=== PATIENT | male | born 1975 | race Caucasian/White ===

== ENCOUNTER 2018-06-19 13:45 | Emergency (ER) | payer MEDICAID ==
--- NOTE | 2018-06-19 14:01 | ERPHSYRPT ---
- History of Present Illness Time Seen by Provider: 06/19/18 13:55 Source: patient Exam Limitations: no limitations Physician History: 42 y/o white male presents with headache and dizziness for several days. pt is under a lot of stress. pt has sig cardiac hx including cardiac stents placed X2. [facility]x a [facility]. [facility] months. pt has a new job and a new place to live with his son and he is out of all his cardiac meds. 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 Timing/Duration: day(s) (several days) Severity: mild Character of Deficits: other (headache and dizziness) Deficits: no difficulties Baseline/Normal Cognition: alert oriented x 3 Current Cognition: alert oriented x 3 Baseline Gait: walks w/o assistance Associated Symptoms: headache, other (dizziness) Allergies/Adverse Reactions: No Known Drug Allergies Allergy (Verified 06/19/18 14:09) Home Medications: No Reportable Medications [No Reported Medications] 06/19/18 [History] - Review of Systems Constitutional: No Symptoms Eyes: No Symptoms Ears, Nose, & Throat: No Symptoms Respiratory: No Symptoms Cardiac: No Symptoms Abdominal/Gastrointestinal: No Symptoms Genitourinary Symptoms: No Symptoms Musculoskeletal: No Symptoms Skin: No Symptoms Neurological: Dizziness, Headache Psychological: Anxiety, Other (stressed) Endocrine: No Symptoms Hematologic/Lymphatic: No Symptoms Immunological/Allergic: No Symptoms All Other Systems: Reviewed and Negative - Past Medical History Neurological History: No Pertinent History ENT History: No Pertinent History Cardiac History: No Pertinent History Respiratory History: No Pertinent History Endocrine Medical History: No Pertinent History Musculoskeletal History: No Pertinent History GI Medical History: No Pertinent History History: No Pertinent History Psycho-Social History: No Pertinent History Male Reproductive Disorders: No Pertinent History - Past Surgical History Neuro Surgical History: No Pertinent History Cardiac: No Pertinent History Respiratory: No Pertinent History Gastrointestinal: No Pertinent History Genitourinary: No Pertinent History Musculoskeletal: No Pertinent History Male Surgical History: No Pertinent History - Nursing Vital Signs Nursing Vital Signs: Initial Vital Signs Temperature 97.8 F 06/19/18 13:50 Pulse Rate 100 H 06/19/18 13:50 Blood Pressure 111/88 06/19/18 13:50 O2 Sat by Pulse Oximetry 94 L 06/19/18 13:50 Pain Scale Pain Intensity 10 - [place] Coma Scale Best Eye Response ([place]): (4) open spontaneously Best Verbal Response ([place]): (5) oriented Best Motor Response ([place]): (6) obeys commands Unique Total: 15 - Physical Exam General Appearance: mild distress, alert, anxiety Eye Exam: bilateral eye: normal inspection, PERRL, EOMI Ears, Nose, Throat Exam: normal ENT inspection, moist mucous membranes Neck Exam: normal inspection, non-tender, supple, full range of motion Respiratory: normal breath sounds, lungs clear, airway intact, No chest tenderness, No respiratory distress, No accessory muscle use, No rhonchi, No wheezing, No stridor Cardiovascular: regular rate/rhythm, normal heart sounds, normal peripheral pulses Gastrointestinal: soft, normal bowel sounds, No tenderness, No guarding, No rebound Rectal Exam: not done Back Exam: normal inspection, normal range of motion, No CVA tenderness, No vertebral tenderness Extremity Exam: normal inspection, normal range of motion, pelvis stable Mental Status: alert, oriented x 3, cooperative quality assurance monitor final Exam: normal hearing, normal speech, PERRL, tongue midline Coordination/Gait: normal finger to nose, normal gait Motor/Sensory: no motor deficit, no sensory deficit Skin Exam: normal color, warm, dry SpO2 Interpretation: normal O2 Delivery: Room Air - Course Nursing assessment & vital signs reviewed: Yes EKG Interpreted by Me: RATE (81), Sinus Rhythm, NORMAL AXIS, Other (no acute ischemia. no comparison ekg) Ordered Tests: Active Orders 24 hr Category Date Time Status Clean Catch Urine Specimen STAT Care 06/19/18 14:08 Active EKG-ER Only STAT Care 06/19/18 14:08 Active IV Insertion STAT Care 06/19/18 14:08 Active HEAD WITHOUT CONTRAST [CT] Stat Exams 06/19/18 14:08 Completed CBC W DIFF Stat Lab 06/19/18 14:20 Completed CMP Stat Lab 06/19/18 14:20 Completed ETHYL ALCOHOL Stat Lab 06/19/18 14:20 Completed MAGNESIUM Stat Lab 06/19/18 14:20 Completed TROPONIN Q3H Lab 06/19/18 14:20 Completed TROPONIN Q3H Lab 06/19/18 20:15 Ordered TROPONIN Q3H Lab 06/19/18 23:15 Ordered TROPONIN Q3H Lab 06/20/18 02:15 Ordered UA W/RFX UR CULTURE Stat Lab 06/19/18 Completed Urine Triage Profile Stat Lab 06/19/18 Completed Medication Summary Discontinued Medications Generic Name Dose Route Start Last Admin Trade Name Jesus PRN Reason Stop Dose Admin Morphine Sulfate 4 mg 06/19/18 16:07 06/19/18 16:25 Morphine Sulfate 4 Mg Inj IV 06/19/18 16:08 4 mg STAT ONE Administration Morphine Sulfate Confirm 06/19/18 16:18 Morphine Sulfate 4 Mg Inj Administered 06/19/18 16:19 Dose 4 mg .ROUTE .STK-MED ONE Ondansetron HCl 4 mg 06/19/18 16:08 06/19/18 16:25 Zofran 4 Mg/2 Ml Vial IV 06/19/18 16:09 4 mg STAT ONE Administration Ondansetron HCl Confirm 06/19/18 16:18 Zofran 4 Mg/2 Ml Vial Administered 06/19/18 16:19 Dose 4 mg .ROUTE .STK-MED ONE Lab/Rad Data: Laboratory Result Diagrams 06/19/18 14:20 06/19/18 14:20 Laboratory Results 06/19/18 06/19/18 06/19/18 Range/Units Unknown Unknown 14:20 WBC (4.0-10.5) K/mm3 RBC (4.1-5.6) M/mm3 Hgb (12.5-18.0) gm/dl Hct (42-50) % MCV (78-100) fl MCH (26-32) pg MCHC (32-36) g/dl RDW (11.5-14.0) % Plt Count (150-450) K/mm3 MPV (6-9.5) fl Gran % (36.0-66.0) % Eos # (Auto) (0-0.5) Absolute Lymphs (auto) (1.0-4.6) Absolute Monos (auto) (0.0-1.3) Lymphocytes % (24.0-44.0) % Monocytes % (0.0-12.0) % Eosinophils % (0.00-5.0) % Basophils % (0.0-0.4) % Absolute Granulocytes (1.4-6.9) Basophils # (0-0.4) Sodium (137-145) mmol/L Potassium (3.5-5.1) mmol/L Chloride (98-107) mmol/L Carbon Dioxide (22-30) mmol/L Anion Gap (5-15) MEQ/L BUN (9-20) mg/dL Creatinine (0.66-1.25) mg/dL Estimated GFR ML/MIN Glucose (74-106) mg/dL Calcium (8.4-10.2) mg/dL Magnesium (1.6-2.3) mg/dL Total Bilirubin (0.2-1.3) mg/dL AST (17-59) U/L ALT (0-50) U/L Alkaline Phosphatase (38-126) U/L Troponin I < 0.012 (0.000-0.034) ng/mL Serum Total Protein (6.3-8.2) g/dL Albumin (3.5-5.0) g/dL Urine Color YELLOW (YELLOW) Urine Appearance CLEAR (CLEAR) Urine pH 7.0 (5-6) Ur Specific [place] 1.013 (1.005-1.025) Urine Protein NEGATIVE (Negative) Urine Ketones NEGATIVE (NEGATIVE) Urine Blood NEGATIVE (0-5) Elliot/ul Urine Nitrite NEGATIVE (NEGATIVE) Urine Bilirubin NEGATIVE (NEGATIVE) Urine Urobilinogen NEGATIVE (0-1) mg/dL Ur Leukocyte Esterase NEGATIVE (NEGATIVE) Urine WBC (Auto) NONE (0-5) /HPF Urine RBC (Auto) NONE (0-2) /HPF U Epithel Cells (Auto) NONE (FEW) /HPF Urine Bacteria (Auto) NONE (NEGATIVE) /HPF Urine Mucus (Auto) SLIGHT (NEGATIVE) /HPF Urine Culture Reflexed NO (NO) Urine Glucose NEGATIVE (NEGATIVE) mg/dL Urine Opiates Level NEGATIVE (NEGATIVE) Ur Methadone NEGATIVE (NEGATIVE) Urine Barbiturates NEGATIVE (NEGATIVE) Ur Phencyclidine (PCP) NEGATIVE (NEGATIVE) Urine Amphetamine NEGATIVE (NEGATIVE) U Benzodiazepine Level NEGATIVE (NEGATIVE) Urine Cocaine NEGATIVE (NEGATIVE) Urine Marijuana (THC) NEGATIVE (NEGATIVE) Ethyl Alcohol (0-10) mg/dL 06/19/18 06/19/18 Range/Units 14:20 14:20 WBC 7.0 (4.0-10.5) K/mm3 RBC 4.99 (4.1-5.6) M/mm3 Hgb 14.8 (12.5-18.0) gm/dl Hct 46.9 (42-50) % MCV 94.0 (78-100) fl MCH 29.7 (26-32) pg MCHC 31.6 L (32-36) g/dl RDW 14.1 H (11.5-14.0) % Plt Count 145 L (150-450) K/mm3 MPV 13.0 H (6-9.5) fl Gran % 52.7 (36.0-66.0) % Eos # (Auto) 0.36 (0-0.5) Absolute Lymphs (auto) 2.51 (1.0-4.6) Absolute Monos (auto) 0.41 (0.0-1.3) Lymphocytes % 35.9 (24.0-44.0) % Monocytes % 5.9 (0.0-12.0) % Eosinophils % 5.1 H (0.00-5.0) % Basophils % 0.4 (0.0-0.4) % Absolute Granulocytes 3.69 (1.4-6.9) Basophils # 0.03 (0-0.4) Sodium 141 (137-145) mmol/L Potassium 3.6 (3.5-5.1) mmol/L Chloride 107 (98-107) mmol/L Carbon Dioxide 27 (22-30) mmol/L Anion Gap 10.4 (5-15) MEQ/L BUN 15 (9-20) mg/dL Creatinine 0.75 (0.66-1.25) mg/dL Estimated GFR > 60.0 ML/MIN Glucose 150 H (74-106) mg/dL Calcium 9.1 (8.4-10.2) mg/dL Magnesium 2.1 (1.6-2.3) mg/dL Total Bilirubin 0.30 (0.2-1.3) mg/dL AST 19 (17-59) U/L ALT 25 (0-50) U/L Alkaline Phosphatase 51 (38-126) U/L Troponin I (0.000-0.034) ng/mL Serum Total Protein 7.0 (6.3-8.2) g/dL Albumin 3.9 (3.5-5.0) g/dL Urine Color (YELLOW) Urine Appearance (CLEAR) Urine pH (5-6) Ur Specific [place] (1.005-1.025) Urine Protein (Negative) Urine Ketones (NEGATIVE) Urine Blood (0-5) Elliot/ul Urine Nitrite (NEGATIVE) Urine Bilirubin (NEGATIVE) Urine Urobilinogen (0-1) mg/dL Ur Leukocyte Esterase (NEGATIVE) Urine WBC (Auto) (0-5) /HPF Urine RBC (Auto) (0-2) /HPF U Epithel Cells (Auto) (FEW) /HPF Urine Bacteria (Auto) (NEGATIVE) /HPF Urine Mucus (Auto) (NEGATIVE) /HPF Urine Culture Reflexed (NO) Urine Glucose (NEGATIVE) mg/dL Urine Opiates Level (NEGATIVE) Ur Methadone (NEGATIVE) Urine Barbiturates (NEGATIVE) Ur Phencyclidine (PCP) (NEGATIVE) Urine Amphetamine (NEGATIVE) U Benzodiazepine Level (NEGATIVE) Urine Cocaine (NEGATIVE) Urine Marijuana (THC) (NEGATIVE) Ethyl Alcohol < 10 (0-10) mg/dL - Progress Progress: improved, pain not gone completely, re-examined Counseled pt/family regarding: lab results, diagnosis, need for follow-up, rad results - Departure Departure Disposition: Home Clinical Impression: Headache, Dizziness Condition: Stable Critical Care Time: No Referrals: HERMES STRANGE MD [Primary Care Provider] - Additional Instructions: drink plenty of fluids. call your gristmill operator tomorrow for further management. use tylenol and ibuprofen for your pain.
[2018-06-19 14:38] LABS: BASOPHIL % 0.4 % (0.0-0.4); Basophil (Absolute #) 0.03 (0-0.4); Eosinophil % 5.1 % (0.00-5.0); Eosinophil (Absolute #) 0.36 (0-0.5); Granulocyte Absolute (ANC) 3.69 (1.4-6.9); Granulocytes % 52.7 % (36.0-66.0); Hematocrit 46.9 % (42-50); Hemoglobin 14.8 gm/dl (12.5-18.0); Lymphocyte (Absolute #) 2.51 (1.0-4.6); Lymphocytes % 35.9 % (24.0-44.0); Mean Corpuscular Hemoglobin 29.7 pg (26-32); Mean Corpuscular Hgb Concent. 31.6 g/dl (32-36); Monocyte (Absolute #) 0.41 (0.0-1.3); Monocytes % 5.9 % (0.0-12.0); Platelet Count 145 K/mm3 (150-450); Red Blood Count 4.99 M/mm3 (4.1-5.6); Red Cell Distribution Width 14.1 % (11.5-14.0)
--- NOTE | 2018-06-19 14:44 | XRAY ---
Indication: Headache and dizziness. Multiple contiguous axial images obtained through the head without contrast. Comparison: None Normal appearing brain parenchyma, ventricles, and bony calvarium. Visualized paranasal sinuses and mastoid air cells are clear. Impression: Normal CT head without contrast exam. CT DI 68.98
[2018-06-19 14:50] LABS: ALBUMIN 3.9 g/dL (3.5-5.0); ALKALINE PHOSPHATASE 51 U/L (38-126); ANION GAP 10.4 MEQ/L (5-15); BLOOD UREA NITROGEN 15 mg/dL (9-20); CHLORIDE 107 mmol/L (98-107); Calcium 9.1 mg/dL (8.4-10.2); Carbon Dioxide 27 mmol/L (22-30); Creatinine 1 0.75 mg/dL (0.66-1.25); ETHYL ALCOHOL < 10 mg/dL (0-10); Glucose 150 mg/dL (74-106); MAGNESIUM 2.1 mg/dL (1.6-2.3); Potassium 3.6 mmol/L (3.5-5.1); SGOT/AST 19 U/L (17-59); SGPT/ALT 25 U/L (0-50); SODIUM 141 mmol/L (137-145)
[2018-06-19] MEDS ORDERED: MORPHINE SULFATE 4 MG INJ IV ONE (16:07)
[2018-06-19] MEDS ORDERED: Zofran 4 MG/2 ML VIAL IV ONE (16:08)
[2018-06-19] MEDS ORDERED: MORPHINE SULFATE 4 MG INJ ONE (16:18)
[2018-06-19] MEDS ORDERED: Zofran 4 MG/2 ML VIAL ONE (16:18)
[2018-06-19 16:58] VITALS: BP 107/74; O2SAT 97
[2018-06-19 17:15] LABS: Appearance CLEAR (CLEAR); Bilirubin NEGATIVE (NEGATIVE); Blood NEGATIVE Ery/ul (0-5); Glucose NEGATIVE (NEGATIVE); Ketones NEGATIVE (NEGATIVE); Leukocyte Esterase NEGATIVE (NEGATIVE); Mucus SLIGHT /HPF (NEGATIVE); Nitrite NEGATIVE (NEGATIVE); Protein,Urine Dip NEGATIVE (Negative); Specific Gravity 1.013 (1.005-1.025); Urobilinogen NEGATIVE mg/dL (0-1)
[2018-06-19 17:33] LABS: Amphetamine,Urine NEGATIVE (NEGATIVE); Barbiturate,Urine NEGATIVE (NEGATIVE); Benzodiazepine,Urine NEGATIVE (NEGATIVE); Cocaine,Urine NEGATIVE (NEGATIVE); Methadone,Urine NEGATIVE (NEGATIVE); Opiate,Urine NEGATIVE (NEGATIVE); PCP,Urine NEGATIVE (NEGATIVE); THC,Urine NEGATIVE (NEGATIVE)
[2018-06-19 18:41] VITALS: PULSE 70
== END 2018-06-19 18:41 | disposition home or self-care (01) ==
LOC: ED 13:45
DX: R51 Headache (principal); R42 Dizziness and giddiness
CPT/HCPCS: 36000; 36415; 70450; 80053; 80307; 81001; 83735; 84484; 85025; 93005; 96374; 96375; 99284; J2270; J2405; G0480

== ENCOUNTER 2018-06-22 19:22 | Emergency (ER) | payer MEDICAID ==
[2018-06-22] MEDS ORDERED: BABY ASPIRIN 81 MG CHEW PO ONE (19:34)
[2018-06-22 19:36] VITALS: O2SAT 96
[2018-06-22 19:49] LABS: BASOPHIL % 0.5 % (0.0-0.4); Basophil (Absolute #) 0.04 (0-0.4); Eosinophil % 2.9 % (0.00-5.0); Eosinophil (Absolute #) 0.24 (0-0.5); Granulocyte Absolute (ANC) 4.59 (1.4-6.9); Granulocytes % 56.4 % (36.0-66.0); Hematocrit 46.6 % (42-50); Lymphocyte (Absolute #) 2.91 (1.0-4.6); Lymphocytes % 35.7 % (24.0-44.0); Mean Corpuscular Hemoglobin 30.2 pg (26-32); Mean Corpuscular Hgb Concent. 32.2 g/dl (32-36); Mean Platelet Volume 13.1 fl (6-9.5); Monocyte (Absolute #) 0.37 (0.0-1.3); Monocytes % 4.5 % (0.0-12.0); Platelet Count 148 K/mm3 (150-450); Red Blood Count 4.96 M/mm3 (4.1-5.6); Red Cell Distribution Width 14.1 % (11.5-14.0); White Blood Count 8.2 K/mm3 (4.0-10.5)
[2018-06-22] MEDS ORDERED: Ativan 2 MG/1 ML VIAL IV ONE (20:02)
[2018-06-22 20:11] LABS: ALKALINE PHOSPHATASE 58 U/L (38-126); ANION GAP 10.7 MEQ/L (5-15); BLOOD UREA NITROGEN 20 mg/dL (9-20); CHLORIDE 107 mmol/L (98-107); Carbon Dioxide 26 mmol/L (22-30); Glucose 150 mg/dL (74-106); NT PRO BNP 60.4 pg/mL (0-450); Potassium 3.8 mmol/L (3.5-5.1); SGOT/AST 24 U/L (17-59); SGPT/ALT 27 U/L (0-50); SODIUM 141 mmol/L (137-145)
[2018-06-22] MEDS ORDERED: Ativan 2 MG/1 ML VIAL ONE (20:12)
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
[2018-06-22 21:03] VITALS: BP 128/84; PULSE 92
== END 2018-06-22 21:14 | disposition home or self-care (01) ==
LOC: ED 19:22
DX: R07.9 Chest pain, unspecified (principal); Z63.8 Other specified problems related to primary support group
CPT/HCPCS: 36000; 36415; 80053; 83880; 84484; 85025; 85379; 93005; 93041; 96374; 99284; J2060; A9270-GY

== ENCOUNTER 2018-08-19 16:40 | Emergency (ER) | payer MEDICAID ==
[2018-08-19 17:09] VITALS: BP 112/74; PULSE 86; O2SAT 98
[2018-08-19] MEDS ORDERED: NORCO 5/325 MG PO ONE (17:21)
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
[2018-08-19] MEDS ORDERED: NORCO 5/325 MG ONE (17:25)
== END 2018-08-19 18:11 | disposition home or self-care (01) ==
LOC: ED 16:40
DX: M54.5 Low back pain (principal); M79.604 Pain in right leg; V89.2XXS Person injured in unspecified motor-vehicle accident, traffic, sequela; I25.10 Atherosclerotic heart disease of native coronary artery without angina pectoris; I25.2 Old myocardial infarction; G47.30 Sleep apnea, unspecified; Z79.899 Other long term (current) drug therapy; F32.9 Major depressive disorder, single episode, unspecified
CPT/HCPCS: 99283; A9270-GY

== ENCOUNTER 2018-12-28 11:44 | Emergency (ER) | payer OTHER ==
[2018-12-28 12:00] VITALS: O2SAT 93
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
[2018-12-28 12:51] VITALS: BP 117/81; PULSE 87
== END 2018-12-28 13:30 | disposition home or self-care (01) ==
LOC: ED 11:44
DX: H60.92 Unspecified otitis externa, left ear (principal); H66.92 Otitis media, unspecified, left ear; J02.9 Acute pharyngitis, unspecified; Z72.0 Tobacco use
CPT/HCPCS: 99283

== ENCOUNTER 2021-07-29 11:56 | Day surgery (SDC) | payer OTHER ==
[2021-07-29] MEDS ORDERED: Marcaine Mpf 0.5% Vial 30 Ml IJ ONE (11:57)
[2021-07-29] MEDS ORDERED: Xylocaine 1% Vial 30 ML PF IJ ONE (11:57)
[2021-07-29] MEDS ORDERED: Depo-Medrol 40 MG/ML IM ONE (11:57)
[2021-07-29] MEDS ORDERED: Lactated Ringers 1,000 ML IV ONE (15:00)
--- NOTE | 2021-07-29 16:32 | XRAY ---
Indication: Cervical CLEMENTINA. Intraoperative fluoroscopy provided for 29 seconds. 2 digital spot image submitted for interpretation demonstrates midline posterior needle tip projecting just posterior to cervical thoracic. Small amount of contrast injected for needle tip placement. Correlate with intraoperative findings/report.
--- NOTE | 2021-07-29 16:35 | XRAY ---
Indication: Right hip injection. Intraoperative fluoroscopy provided for 11 seconds. Single digital spot image obtained prone submitted for interpretation demonstrates needle tip projecting lateral to the right greater trochanter. Small amount of contrast injected for needle tip placement. Correlate with intraoperative findings/report.
--- NOTE | 2021-07-29 16:45 | XRAY ---
29 seconds of fluoroscopy was used in surgery for a cervical CLEMENTINA.
--- NOTE | 2021-07-29 16:45 | XRAY ---
11 seconds of fluoroscopy was used in surgery for a right hip greater trochanteric bursa injection.
== END 2021-07-29 14:40 | disposition home or self-care (01) ==
LOC: SDC-PAIN 11:56
PROVIDERS: ATTEND Psychiatry & Neurology Pain Medicine
DX: M54.12 Radiculopathy, cervical region (principal); M70.61 Trochanteric bursitis, right hip; Z79.899 Other long term (current) drug therapy
CPT/HCPCS: 62323; 72040; 73501; 77002; 77003; J1030; J2001; Q9966

== ENCOUNTER 2022-11-10 12:10 | Day surgery (SDC) | payer OTHER ==
[2022-11-10] MEDS ORDERED: BUPIVACAINE 0.5% VIAL IJ ONE (12:11)
[2022-11-10] MEDS ORDERED: Depo-Medrol 40 MG/ML IM ONE (12:11)
[2022-11-10] MEDS ORDERED: LIDOCAINE HCL 1% 50 MG/5 ML VL PF IJ ONE (12:11)
--- NOTE | 2022-11-10 14:44 | XRAY ---
Indication: Bilateral SI joint injection. Intraoperative fluoroscopy provided for 30 seconds. 7 digital spot image submitted for interpretation demonstrates posterior needle tip projecting over the expected left and right SI joint. Correlate with intraoperative findings
--- NOTE | 2022-11-10 16:46 | XRAY ---
30 seconds of fluoroscopy was used in surgery for a bilateral sacroiliac joint injection.
== END 2022-11-10 14:20 | disposition home or self-care (01) ==
LOC: SDC-PAIN 12:10
PROVIDERS: ATTEND Psychiatry & Neurology Pain Medicine
DX: M46.1 Sacroiliitis, not elsewhere classified (principal); Z79.899 Other long term (current) drug therapy
CPT/HCPCS: 27096; 72202; 77002; J1030; J2001; G0260

== ENCOUNTER 2023-02-02 13:03 | Day surgery (SDC) | payer OTHER ==
[2023-02-02] MEDS ORDERED: Depo-Medrol 40 MG/ML IM ONE (13:04)
[2023-02-02] MEDS ORDERED: Decadron 4 MG INJ IV ONE (13:04)
[2023-02-02] MEDS ORDERED: XYLOCAINE-MPF 1% 5ML SDV IJ ONE (13:04)
[2023-02-02] MEDS ORDERED: BUPIVACAINE 0.5% VIAL IJ ONE (13:04)
[2023-02-02] MEDS ORDERED: DIPRIVAN 200 MG/20 ML IV ONE (15:21)
[2023-02-02] MEDS ORDERED: Versed 2 MG/2 ML Injection ONE (15:21)
[2023-02-02] MEDS ORDERED: Lactated Ringers 1,000 ML IV ONE (16:27)
--- NOTE | 2023-02-02 21:07 | XRAY ---
Indication: Right piriformis and right greater trochanter bursa injection. Intraoperative fluoroscopy provided for 35 seconds. 2 digital spot image obtained prone submitted for interpretation demonstrates posterior needle tip projecting over the right piriformis. Second needle tip lateral to the right greater trochanter. Small amount of contrast injected for both needle tip placement. Correlate with intraoperative findings/report.
--- NOTE | 2023-02-02 21:44 | XRAY ---
35 seconds of fluoroscopy was used in surgery for a right greater trochanteric bursa and right piriformis injections.
== END 2023-02-02 15:52 | disposition home or self-care (01) ==
LOC: SDC-PAIN 13:03
PROVIDERS: ATTEND Psychiatry & Neurology Pain Medicine
DX: M70.61 Trochanteric bursitis, right hip (principal); M79.18 Myalgia, other site
CPT/HCPCS: 20552; 20610; 73501; 77002; J1030; J1100; J2250; J2704; Q9966

== ENCOUNTER 2023-09-28 14:15 | Day surgery (SDC) | payer OTHER ==
[2023-09-28] MEDS ORDERED: Sodium Chloride 0.9(Preservative Free) 10 ML IJ ONE (14:16)
[2023-09-28] MEDS ORDERED: Decadron 4 MG INJ IV ONE (14:16)
[2023-09-28] MEDS ORDERED: DIPRIVAN 200 MG/20 ML IV ONE (16:05)
--- NOTE | 2023-09-28 16:50 | XRAY ---
Indication: Right L3-L5 transforaminal CLEMENTINA. Intraoperative fluoroscopy provided for 24 seconds. 6 digital spot image submitted for interpretation demonstrates posterior needle tips projecting over the right L3 and L4 nerve roots. Small amount of contrast injected for needle tip placement. Correlate with intraoperative findings/report. Incidental right iliac stent.
--- NOTE | 2023-09-28 16:52 | XRAY ---
24 seconds of fluoroscopy was used in surgery for a right L3-L5 transforaminal CLEMENTINA.
[2023-09-28] MEDS ORDERED: Lactated Ringers 1,000 ML IV ONE (17:02)
== END 2023-09-28 16:41 | disposition home or self-care (01) ==
LOC: SDC-PAIN 14:15
PROVIDERS: ATTEND Psychiatry & Neurology Pain Medicine
DX: M54.16 Radiculopathy, lumbar region (principal)
CPT/HCPCS: 64483; 64484; 72100; 77003; J1100; J2704; Q9966

== ENCOUNTER 2023-09-29 08:48 | Day surgery (SDC) | payer OTHER ==
[2023-09-29] MEDS ORDERED: Lactated Ringers 1,000 ML IV ONE ×2 (09:10→14:04)
[2023-09-29] MEDS ORDERED: MEFOXIN 2 GM PREMIX** 2 GM/50 ML ML IV ONE (09:10)
[2023-09-29 09:12] VITALS: RESP 18; O2SAT 94
[2023-09-29] MEDS: Lactated Ringers 1,000 ML IV SCH (09:25)
[2023-09-29] MEDS: MEFOXIN 2 GM PREMIX** 2 GM/50 ML ML IV SCH (09:25)
[2023-09-29] MEDS ORDERED: Xylocaine-Mpf 2% 5 Ml Vial ONE (13:12)
[2023-09-29] MEDS ORDERED: DIPRIVAN 200 MG/20 ML IV ONE (13:12)
[2023-09-29] MEDS ORDERED: EXPAREL 133 MG/10 ML VIAL IJ ONE (13:13)
[2023-09-29] MEDS ORDERED: Decadron 4 MG INJ ONE ×2 (13:13→13:14)
[2023-09-29] MEDS ORDERED: Zofran 4 MG/2 ML VIAL ONE (13:14)
[2023-09-29] MEDS ORDERED: Marcaine Mpf 0.5% Vial 30 Ml ONE (13:58)
[2023-09-29] MEDS ORDERED: SUBLIMAZE 100 MCG/2 ML ONE (14:32)
[2023-09-29 15:15] VITALS: TEMP 97.8
[2023-09-29 15:32] VITALS: BP 120/78; PULSE 82
--- NOTE | 2023-09-30 09:06 | OP ---
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 POSTOPERATIVE DIAGNOSES: 1) Colon polyps. 2) [id number]. PROCEDURE: 1) Colonoscopy with endomucosal resection and multiple polypectomies. 2) Rectal examination under anesthesia. 3) Fistulotomy. SURGEON: John Boyce MD ANESTHESIA: LMA anesthesia. PATIENT CONDITION: Stable. COMPLICATIONS: None. SPECIMENS: See below. HISTORY OF PRESENT ILLNESS: Patient is a 48-year-old male, had undergone a colonoscopy although he did not hold his aspirin and Brilinta for that. So, he did have a colonoscopy, but there are multiple unresected polyps, and then also identified on that is probably a fistula. He does complain of persistent intermittent bloody anal drainage, so he does want that dealt with. Discussion was had with the patient of risk of acute pain, infection, recurrence, bleeding. He elected to proceed. FINDINGS: 1) Multiple colon polyps. Endomucosal resection performed of a 1 cm polyp, rectosigmoid. Additional 1 cm polyp and many hyperplastic-appearing polyps, rectosigmoid. 2) Poor preparation of the cecum transverse, but actually good preparation distally. 3) [id number] posteriorly, very superficial. Fistulotomy performed. DESCRIPTION OF PROCEDURE: Patient brought to the operating room. General anesthesia induced. Routinely positioned in lithotomy, appropriately prepped and positioned. A time-out performed. The external exam with that likely posterior fistula. The digital rectal exam otherwise normal. Scope was then inserted and advanced to the cecum, confirmed by the appendiceal orifice and the ileocecal valve. Preparation was actually poor on the cecum and transverse, but the descending, sigmoid, rectum are good preparation. Withdrawal time is greater than 6 minutes, and there are no polyps identified until the rectosigmoid. Like previously described, there are multiple sessile polyps. There is about a 1 cm polyp, sigmoid colon, that is sessile that is everlifted and endomucosal resection performed with the hot snare. That is completely excised satisfactorily. There are additional 4 mm and 2 mm polyps, sessile, next to that taken with a hot snare. There are then just innumerable hyperplastic-appearing rectosigmoid polyps. Initially about 7 of them are taken; patient access representative specimens sent. Then, there is a rectosigmoid pedunculated polyp, 10 mm, that is taken with a hot snare in totality. Retroflexion otherwise just moderate internal hemorrhoids. That is sectioned out. Scope withdrawn. The rectal examination is then performed. Small Hill-Morales inserted. Large Hill-Morales inserted. There are some mild to moderate internal hemorrhoids, but there is the obvious posterior anal fistula that is probed and that clearly communicates. This is very superficial and does not involve any sphincter muscle, so that is incised with cautery. The base is lightly debrided. That is satisfactory, although a 3-0 chromic is placed at the apex kind of where it meets the internal hemorrhoidal tissue, and that is totally hemostatic at that point. The foam plug is then inserted. Anal block performed with Marcaine. Clean dressing applied. All counts were correct. Patient tolerated the procedure well, was extubated in stable condition.
== END 2023-09-29 15:32 | disposition home or self-care (01) ==
LOC: SDC 08:48
PROVIDERS: ATTEND Surgery
DX: D12.7 Benign neoplasm of rectosigmoid junction (principal); D12.5 Benign neoplasm of sigmoid colon; K60.3 Anal fistula; K64.8 Other hemorrhoids
CPT/HCPCS: 93005; J0694; J1100; J2405; J2704; J3010

== ENCOUNTER 2023-10-14 10:22 | Emergency (ER) | payer OTHER ==
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
[2023-10-14] MEDS ORDERED: Sodium Chloride 0.9% 1000 ML 1,000 ML ONE ×2 (11:15→12:31)
[2023-10-14] MEDS ORDERED: Compazine 10 MG/2 ML ONE (11:15)
[2023-10-14] MEDS ORDERED: MORPHINE SULFATE 4 MG INJ ONE (11:15)
[2023-10-14 11:16] VITALS: TEMP 97.6
[2023-10-14 11:18] LABS: Absolute Neutrophil Ct (ANC) 6.37 x10^3/uL (1.78-5.38); BASOPHIL % 0.5 % (0.2-1.2); Basophil (Absolute #) 0.05 x10^3/uL (0.01-0.08); Eosinophil % 0.8 % (0.8-7.0); Eosinophil (Absolute #) 0.09 x10^3/uL (0.04-0.54); Hemoglobin 13.2 g/dL (13.7-17.5); IMMATURE GRAN # 0.04 x10^3u/L (0.001-0.031); IMMATURE GRAN % 0.4 % (0.001-0.429); Lymphocyte (Absolute #) 3.84 x10^3/uL (1.32-3.57); Lymphocytes % 34.8 % (21.8-53.1); Mean Cell Volume 93.5 fL (79.0-92.2); Mean Corpuscular Hemoglobin 30.8 pg (25.7-32.2); Monocyte (Absolute #) 0.65 x10^3/uL (0.30-0.82); Monocytes % 5.9 % (5.3-12.2); Neutrophil % 57.6 % (34.0-67.9); Platelet Count 153 x10^3/uL (163-337); Red Blood Count 4.28 x10^6/uL (4.63-6.08); Red Cell Distribution Width 13.5 % (11.6-14.4)
[2023-10-14] MEDS: Sodium Chloride 0.9% 1000 ML 1,000 ML IV STA (11:20)
[2023-10-14] MEDS: Compazine 10 MG/2 ML IV ONE (11:21)
[2023-10-14] MEDS: MORPHINE SULFATE 4 MG INJ IV ONE (11:24)
[2023-10-14 11:30] LABS: ALBUMIN 4.1 g/dL (3.5-5.0); ANION GAP 11.3 MEQ/L (5-15); BILIRUBIN,TOTAL 0.5 mg/dL (0.2-1.3); Calcium 9.1 mg/dL (8.4-10.2); Creatinine 1 1.06 mg/dL (0.66-1.25); EST GLOMERULAR FILTRATION RATE 86.6 ML/MIN; MAGNESIUM 2.1 mg/dL (1.6-2.3); Potassium 3.9 mmol/L (3.5-5.1); Total Protein 6.8 g/dL (6.3-8.2)
[2023-10-14] MEDS: Sodium Chloride 0.9% 1000 ML 1,000 ML IV SCH (12:32)
[2023-10-14 12:51] LABS: Appearance Clear (Clear); Bacteria None Seen /HPF (None Seen); Bilirubin Negative (Negative); Blood Negative (Negative); Epithelial Cells None Seen /HPF (None Seen); Glucose, Urine Negative (Negative); Hyaline Casts NONE SEEN /LPF (0-2); Ketones Negative (Negative); Leukocyte Esterase Negative (Negative); Nitrite Negative (Negative); Ph 6.5 (4.6-8.0); Protein,Urine Dip Negative (Negative); RBC 0-2 /HPF (0-5); Specific Gravity 1.015 (1.005-1.030); Urobilinogen 0.2 mg/dL (0.2); WBC 0-2 /HPF (0-5)
[2023-10-14 12:53] LABS: ADD URINE CULTURE? NO (NO)
--- NOTE | 2023-10-14 12:59 | XRAY ---
Indication: Status post cholecystectomy. Elevated d-dimer. Multiple contiguous axial images obtained through the chest using 80 cc Isovue 370 contrast and PE protocol. Comparison: None Good opacification pulmonary arteries to include the lobar and segmental branches. No pulmonary embolus. Heart not enlarged. Aorta is normal in course and caliber. A few tiny left hilar calcified nodes. No pathologic mediastinal/hilar lymphadenopathy. Lungs demonstrates mild pulmonary emphysema, bilateral dependent atelectasis, and tiny left upper lobe calcified granuloma. No suspicious pulmonary mass/nodule, infiltrate, effusion, or pneumothorax. Bony thorax intact. CT abdomen/pelvis reported separately. Impression: 1. Negative pulmonary embolus. No acute cardiopulmonary abnormalities. 2. Chronic findings including pulmonary emphysema, arteriosclerotic disease, and old granulomatous disease.
--- NOTE | 2023-10-14 13:01 | PCM.NOTE ---
CARDIOLOGY PHONE CONSULT: ECGs sent for my review: 06/23/2023: NSR at 94 bpm. Incomplete RBBB. 09/29/2023: NSR at 98 bpm. Old inferior infarct.postop 10/14/2023: Complete heart with a junctional escape rhythm (atrial rate 100 bpm, ventricular rate 46 bpm). J point elevation in leads V1-V4. Worst in lead V2 with 1.[address] elevation. No reciprocal changes. Q waves no longer p resent in inferior leads. 48 yo male with h/o CAD S/P PCIx3, HTN, hyperlipidemia, tobacco abuse, and depression who underwent lap CCK 2 days ago. Presented with postop abdominal pain which is different from angina. Initial troponin-I negative. Initial BP 170/90 which decreased to 123/83 with pain control. Patient remains in complete heart block with ventricular rate of 57 bpm. Home meds include aspirin, metoprolol, and statin. Recommended for patient to be transferred to a higher level of care due to his complete heart block. Hold AV karl blocking agents including metoprolol. No need to start beta-agonist IV (eg., dobutamine) now with adequate heart rate and BP. Follow serial troponin-I. Check TSH. Patient not seen as formal consult not performed. Darrel Corona MD [employer] [phone]
--- NOTE | 2023-10-14 13:01 | XRAY ---
Indication: Abdominal pain. Status post cholecystectomy 2 days. Multiple contiguous axial images obtained through the abdomen and pelvis without contrast. Comparison: None CT chest reported separately. Noncontrasted stomach and bowel loops appear nonobstructed with normal appendix. Mild diffuse scattered colonic fecal debris. Gallbladder surgically absent. There is tiny fluid and air bubbles in gallbladder fossa presumed postoperative. No other free fluid/air. Remaining liver, pancreas, spleen, adrenal glands, kidneys, ureters, bladder, and aorta are unremarkable for noncontrast exam. Incidental right common iliac artery stent. Osseous structures intact with minimal degenerative changes throughout the spine. Impression: 1. Status post cholecystectomy. Tiny fluid/air bubbles in gallbladder fossa presumed postoperative. Biloma not completely excluded. 2. Mild diffuse fecal stasis. 3. Remaining CT abdomen/pelvis without contrast exam is negative.
[2023-10-14] MEDS ORDERED: MORPHINE SULFATE 10 MG/ML ONE (13:09)
[2023-10-14] MEDS: MORPHINE SULFATE 10 MG/ML IV ONE (13:11)
[2023-10-14 16:04] VITALS: O2SAT 97
[2023-10-14 17:16] VITALS: BP 114/77; PULSE 58; RESP 16
== END 2023-10-14 17:20 | disposition short-term general hospital (02) ==
LOC: ED 10:22
DX: G89.18 Other acute postprocedural pain (principal); R10.9 Unspecified abdominal pain; I44.2 Atrioventricular block, complete; I10 Essential (primary) hypertension; E78.5 Hyperlipidemia, unspecified; Z79.891 Long term (current) use of opiate analgesic; Z79.899 Other long term (current) drug therapy; Z72.0 Tobacco use
CPT/HCPCS: 36000; 36415; 71260; 74176; 80053; 81001; 82150; 83690; 83735; 84484; 85025; 85379; 93005; 93041; 96374; 96375; 96376; 99285; 99291; J2270

== ENCOUNTER 2023-11-09 13:12 | Day surgery (SDC) | payer OTHER ==
[2023-11-09] MEDS ORDERED: Xylocaine-Mpf 2% 5 Ml Vial IJ ONE (13:13)
[2023-11-09] MEDS ORDERED: DIPRIVAN 200 MG/20 ML IV ONE (14:23)
[2023-11-09] MEDS ORDERED: Lactated Ringers 1,000 ML IV ONE (14:37)
--- NOTE | 2023-11-09 14:58 | XRAY ---
Indication: Bilateral L4-S1 MBB. Intraoperative fluoroscopy provided for 13 seconds. Single digital spot image submitted for interpretation demonstrates posterior needle tips projecting over the expected left and right L4-S1 nerve roots. Correlate with intraoperative findings/report. Incidental right common iliac stent.
--- NOTE | 2023-11-09 17:12 | XRAY ---
13 seconds of fluoroscopy was used in surgery for a bilateral L4-S1 MBB.
== END 2023-11-09 15:00 | disposition home or self-care (01) ==
LOC: SDC-PAIN 13:12
PROVIDERS: ATTEND Psychiatry & Neurology Pain Medicine
DX: M47.816 Spondylosis without myelopathy or radiculopathy, lumbar region (principal)
CPT/HCPCS: 64493; 64494; 72020; 77002; J2704

== ENCOUNTER 2024-05-16 06:36 | Day surgery (SDC) | payer MEDICARE ==
[2024-05-16] MEDS ORDERED: Sodium Chloride 0.9(Preservative Free) 10 ML IJ ONE (06:37)
[2024-05-16] MEDS ORDERED: LIDOCAINE HCL 1% AMPUL 5 ML IJ ONE (06:37)
[2024-05-16] MEDS ORDERED: Lactated Ringers 1,000 ML IV ONE (07:00)
[2024-05-16] MEDS ORDERED: propofoL IV ONE ×2 (08:02→08:12)
[2024-05-16] MEDS ORDERED: CEFAZOLIN SODIUM IV SCH (09:00)
[2024-05-16] MEDS ORDERED: SODIUM CHLORIDE 0.9% IV SCH (09:00)
[2024-05-16] MEDS ORDERED: MORPHINE SULFATE 2 MG INJ ONE (09:07)
--- NOTE | 2024-05-16 10:20 | XRAY ---
Indication: Spinal cord stimulator trial. Intraoperative fluoroscopy provided for 1 minute 12 seconds. 9 digital spot image submitted for interpretation demonstrates introducer needle tip posterior to L1. Single epidural lead inserted with tip positioned mid thoracic spine, approximately T6-T7. Correlate with intraoperative findings/report.
--- NOTE | 2024-05-16 10:35 | XRAY ---
One minute and 12 seconds of fluoroscopy was used in surgery for a spinal cord stimulator trial.
== END 2024-05-16 09:30 | disposition home or self-care (01) ==
LOC: SDC-PAIN 06:36
PROVIDERS: ATTEND Psychiatry & Neurology Pain Medicine
DX: M96.1 Postlaminectomy syndrome, not elsewhere classified (principal)
CPT/HCPCS: 63650; 72100; 77002; C1897; J0690; J2270; J2704

== ENCOUNTER 2024-05-31 08:33 | Day surgery (SDC) | payer MEDICARE ==
[2024-05-31] MEDS ORDERED: Lactated Ringers 1,000 ML IV ONE (08:56)
[2024-05-31 09:42] LABS: ANION GAP 14.4 MEQ/L (5-15); Calcium 8.9 mg/dL (8.4-10.2); EST GLOMERULAR FILTRATION RATE 92.8 ML/MIN
[2024-05-31] MEDS: Lactated Ringers 1,000 ML IV SCH (10:42)
[2024-05-31] MEDS ORDERED: Versed 2 MG/2 ML Injection ONE (11:41)
[2024-05-31] MEDS ORDERED: Xylocaine-Mpf 2% 5 Ml Vial ONE (11:41)
[2024-05-31] MEDS ORDERED: propofoL IV ONE ×2 (11:41→12:09)
[2024-05-31] MEDS ORDERED: Ephedrine Sulfate 50 MG/ML ONE (12:28)
[2024-05-31 12:44] VITALS: RESP 16; TEMP 97.2
[2024-05-31 12:56] VITALS: BP 91/61; PULSE 57; O2SAT 96
--- NOTE | 2024-06-01 13:29 | OP ---
SURGERY DATE/TIME: 05/31/2024 [id number] PREOPERATIVE DIAGNOSIS: Abnormal CT scan. POSTOPERATIVE DIAGNOSIS: Mild gastritis. PROCEDURES: Esophagogastroduodenoscopy with biopsy and balloon dilation of esophagus. SURGEON: John Boyce MD ANESTHESIA: IV. CONDITION: Stable. COMPLICATIONS: None. SPECIMENS: Antral biopsy for H pylori. INDICATION: Patient presents having had an abnormal CT scan showing distal esophageal thickening. Discussed with him. He elected to proceed with an EGD. He is having some dysphagia where it feels like things are kind of hanging up in the esophagus. FINDINGS: Minimal gastritis with erythema. Biopsy taken for H pylori. Totally normal distal esophagus. No hiatal hernia. A 20 mm balloon swept through the esophagus without any resistance. DESCRIPTION OF PROCEDURE AND FINDINGS: Patient was brought to the endoscopy suite. Routinely positioned and prepared. IV anesthesia induced by Anesthesia. The gastroscope was inserted through the mouth, advanced to the third portion of the duodenum. Duodenum was normal in appearance. The stomach just has minimal erythematous gastritis. Biopsies were taken for H pylori. Retroflexion was normal. There was no hiatal hernia. The GE junction was totally normal in appearance. Due to his dysphagia symptoms, a 20 mm balloon was then inserted and inflated to 20 mm and dilated the entire esophagus that it swept through without any resistance. There was no discernable esophageal stricture. Stomach was suctioned out. Scope was withdrawn. Patient tolerated the procedure well. RECOMMENDATIONS: Follow up in office for biopsy results. Could consider upper GI if continued symptoms. The states that he is interested in trying an IBS medication, which could be considered.
== END 2024-05-31 13:05 | disposition home or self-care (01) ==
LOC: SDC 08:33
PROVIDERS: ATTEND Surgery
DX: K29.70 Gastritis, unspecified, without bleeding (principal); R93.3 Abnormal findings on diagnostic imaging of other parts of digestive tract; I10 Essential (primary) hypertension; Z80.0 Family history of malignant neoplasm of digestive organs
CPT/HCPCS: 36415; 80048; 93005; C1726; J2250; J2704

== ENCOUNTER 2025-01-10 13:00 | Observation (INO) | payer MEDICARE ==
[2025-01-10] MEDS ORDERED: PROTONIX 40 MG IV IV ONE (13:26)
[2025-01-10] MEDS: PROTONIX 40 MG IV IV ONE (13:27)
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
[2025-01-10 13:31] LABS: BASOPHIL % 0.8 % (0.2-1.2); Basophil (Absolute #) 0.06 x10^3/uL (0.01-0.08); Eosinophil (Absolute #) 0.11 x10^3/uL (0.04-0.54); Hematocrit 39.6 % (40.1-51.0); Hemoglobin 12.5 g/dL (13.7-17.5); IMMATURE GRAN # 0.02 x10^3u/L (0.001-0.031); IMMATURE GRAN % 0.3 % (0.001-0.429); Lymphocyte (Absolute #) 3.13 x10^3/uL (1.32-3.57); Mean Corpuscular Hemoglobin 29.7 pg (25.7-32.2); Mean Corpuscular Hgb Concent. 31.6 g/dL (32.3-36.5); Monocyte (Absolute #) 0.51 x10^3/uL (0.30-0.82); NUCLEATED RBC # 0.00 x10^3u/L (0.00-0.012); NUCLEATED RBC % 0.0 % (0.00-0.2); Platelet Count 165 x10^3/uL (163-337); Red Blood Count 4.21 x10^6/uL (4.63-6.08); White Blood Count 7.1 x10^3/uL (4.23-9.07)
[2025-01-10] MEDS ORDERED: Zofran 4 MG/2 ML VIAL ONE (13:33)
[2025-01-10] MEDS ORDERED: MORPHINE SULFATE 4 MG INJ ONE ×2 (13:33→16:34)
[2025-01-10] MEDS: MORPHINE SULFATE 4 MG INJ IV ONE ×2 (13:34→16:35)
[2025-01-10] MEDS: Zofran 4 MG/2 ML VIAL IV ONE (13:34)
[2025-01-10 13:46] LABS: Calcium 8.5 mg/dL (8.4-10.2); Carbon Dioxide 18.0 mmol/L (22-30); Creatinine 1 1.04 mg/dL (0.66-1.25); EST GLOMERULAR FILTRATION RATE 88.0 ML/MIN; Glucose 105.0 mg/dL (74-106); Potassium 3.6 mmol/L (3.5-5.1); SGOT/AST 76.0 U/L (17-59); SGPT/ALT 45.0 U/L (0-50); Total Protein 6.6 g/dL (6.3-8.2)
--- NOTE | 2025-01-10 16:35 | XRAY ---
Indication: Pancreatitis. Multiple contiguous axial images obtained through the abdomen and pelvis using 80 cc Isovue 370 contrast. Comparison: August 23, 2024 Lung bases again demonstrates mild bibasilar subsegmental atelectasis/scarring. No infiltrate or effusion. Noncontrasted stomach and bowel loops appear nonobstructed again with normal appendix. Again cholecystectomy. No free fluid/air. Remaining liver, pancreas, spleen, adrenal glands, kidneys, ureters, bladder, and aorta are unremarkable. Again incidental patent right common iliac artery stent. No pathologic retroperitoneal lymphadenopathy. Osseous structures intact again with minimal degenerative changes throughout spine and left lower back epidural generator/leads. Impression: Again chronic findings including atelectasis/scarring, right common iliac artery stent, degenerative spondylosis, and left epidural generator/leads. Remaining CT abdomen/pelvis with contrast is negative.
[2025-01-10] MEDS ORDERED: Dextrose 5% -0.45 NaCl 1000 ML 1,000 ML IV SCH (17:23)
[2025-01-10] MEDS ORDERED: Zofran 4 MG/2 ML VIAL IV PRN (17:57)
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
[2025-01-10] MEDS: Hydromorphone 1 mg/ml Injection IV PRN (18:11)
[2025-01-10] MEDS: Lactated Ringers 1,000 ML IV SCH (18:11)
[2025-01-10] MEDS: PROTONIX 40 MG IV IV SCH (18:14)
[2025-01-10 18:58] LABS: Cholesterol 112.0 mg/dL (50-200); LDL, DIRECT 58.0 mg/dL (30-100); TRIGLYCERIDE 182.0 mg/dL (30-150)
[2025-01-10] MEDS ORDERED: VENTOLIN COMMON CANISTER IH PRN (20:20)
[2025-01-10] MEDS: BRILINTA PO SCH (23:06)
[2025-01-11 05:04] LABS: BASOPHIL % 0.9 % (0.2-1.2); Basophil (Absolute #) 0.05 x10^3/uL (0.01-0.08); Eosinophil (Absolute #) 0.13 x10^3/uL (0.04-0.54); Hematocrit 35.9 % (40.1-51.0); Hemoglobin 11.2 g/dL (13.7-17.5); IMMATURE GRAN # 0.01 x10^3u/L (0.001-0.031); IMMATURE GRAN % 0.2 % (0.001-0.429); Lymphocyte (Absolute #) 2.31 x10^3/uL (1.32-3.57); Mean Corpuscular Hemoglobin 29.3 pg (25.7-32.2); Mean Corpuscular Hgb Concent. 31.2 g/dL (32.3-36.5); Monocyte (Absolute #) 0.45 x10^3/uL (0.30-0.82); NUCLEATED RBC # 0.00 x10^3u/L (0.00-0.012); NUCLEATED RBC % 0.0 % (0.00-0.2); Platelet Count 154 x10^3/uL (163-337); Red Blood Count 3.82 x10^6/uL (4.63-6.08); White Blood Count 5.6 x10^3/uL (4.23-9.07)
[2025-01-11 05:30] LABS: Calcium 8.2 mg/dL (8.4-10.2); Carbon Dioxide 24.0 mmol/L (22-30); Creatinine 1 1.04 mg/dL (0.66-1.25); EST GLOMERULAR FILTRATION RATE 88.0 ML/MIN; Glucose 71.0 mg/dL (74-106); Potassium 3.9 mmol/L (3.5-5.1); SGOT/AST 42.0 U/L (17-59); SGPT/ALT 52.0 U/L (0-50); Total Protein 5.9 g/dL (6.3-8.2)
[2025-01-11 06:41] VITALS: RESP 18
[2025-01-11] MEDS ORDERED: ZOFRAN ODT 4 MG PO PRN (07:33)
[2025-01-11] MEDS ORDERED: Nitrostat 0.4 MG Tablet SL PRN (07:38)
[2025-01-11] MEDS ORDERED: MEDICATION INTERVENTION MC SCH (07:45)
[2025-01-11] MEDS: GI COCKTAIL 45 ML (Maalox/Lidocaine) PO ONE (09:49)
[2025-01-11] MEDS ORDERED: PROTONIX 40 MG IV IV SCH (10:00)
[2025-01-11] MEDS ORDERED: NON-FORMULARY ITEM (Dapagliflozin Propanediol [Farxiga] 10 MG Tablet) PO SCH (10:00)
[2025-01-11] MEDS: Ranexa 500 MG PO SCH (10:24)
[2025-01-11] MEDS: Prozac 20 MG PO SCH (10:25)
[2025-01-11] MEDS: NORCO 10-325 MG PO SCH (10:26)
[2025-01-11] MEDS: LYRICA 100MG PO SCH (10:26)
[2025-01-11] MEDS: Toprol-Xl 25MG Tablets PO SCH (10:27)
[2025-01-11] MEDS: TOPIRAMATE PO SCH (10:27)
[2025-01-11] MEDS: Protonix 40MG Tablet PO SCH (10:27)
[2025-01-11] MEDS: PROAMATINE PO SCH (10:28)
[2025-01-11] MEDS: BUSPAR 5 MG PO SCH (10:28)
[2025-01-11] MEDS: ANTIVERT 25 MG PO SCH (10:28)
[2025-01-11] MEDS: Depakote EXTENDED RELEASE 250 MG PO SCH (10:29)
[2025-01-11] MEDS: LIORESAL 10 MG PO SCH (10:29)
[2025-01-11] MEDS: JARDIANCE PO SCH (10:31)
[2025-01-11] MEDS: Compazine 10 MG/2 ML IV PRN (13:01)
[2025-01-11] MEDS: Mylicon 80MG PO PRN (13:01)
--- NOTE | 2025-01-11 13:08 | PCM.NOTE ---
Date and Time: 01/11/25 1259 Subjective Assessment: 01/10/25 is a 49-year-old male with a complex medical history significant for pancreatitis, coronary artery disease with nine stents, chronic obstructive pulmonary disease, obstructive sleep apnea, osteoarthritis, chronic pain, prior myocardial infarction, bronchitis, depression, and a recent cervical spine surgery. He also has a neurostimulator implanted in his back. The patient reports having an upcoming neurology appointment for possible seizure evaluation and a gastroenterology appointment on February 04 for follow-up regarding gastrointestinal issues, melena, and pancreatitis. He presented to the emergency department via EMS from home for evaluation of sudden-onset epigastric abdominal pain radiating to his chest and neck. Given his extensive cardiac history, including a cardiac catheterization in November revealing an ejection fraction of 35% without the need for new intervention, his symptoms were concerning for possible cardiac etiology. However, workup was more consistent with recurrent pancreatitis. He was diagnosed with pancreatitis approximately three months ago. The patient has a remote history of alcohol use disorder but reports sobriety for several years. The only recent medication change is the addition of Jardiance. En route, he received two doses of fentanyl for pain control. In the emergency department, intravenous fluids were initiated, and morphine was administered for pain related to pancreatitis. The patient is to remain NPO, and lactated Ringers solution will be continued at 250 mL per hour. Dilaudid will be started for ongoing pain management. Due to his significant cardiac history, his anticoagulation therapy will be continued. A lipid panel is pending. There is no current evidence of complications or other acute concerning findings at this time. Trops x2 negative. 01/11/25 - Review of Systems Constitutional: No Fever, No Chills Eyes: No Symptoms Ears, Nose, & Throat: No Symptoms Respiratory: No Cough, No Short Of Breath Cardiac: No Chest Pain, No Edema, No Syncope Abdominal/Gastrointestinal: Abdominal Pain (epigastric pain), No Nausea, No Vomiting, No Diarrhea Genitourinary Symptoms: No Dysuria Musculoskeletal: No Back Pain, No Neck Pain Skin: No Rash Neurological: No Dizziness, No Focal Weakness, No Sensory Changes Psychological: No Symptoms Endocrine: No Symptoms Hematologic/Lymphatic: No Symptoms Immunological/Allergic: No Symptoms Objective Exam General Appearance: no apparent distress, alert Neurologic Exam: alert, oriented x 3, cooperative, normal mood/affect, nml cerebellar function, sensation nml, No motor deficits Skin Exam: normal color, warm, dry Eye Exam: PERRL, EOMI, eyes nml inspection Ears, Nose, Throat Exam: normal ENT inspection, pharynx normal, moist mucous membranes Neck Exam: normal inspection, non-tender, supple, full range of motion Respiratory Exam: normal breath sounds, lungs clear, No respiratory distress Cardiovascular Exam: regular rate/rhythm, normal heart sounds Gastrointestinal/Abdomen Exam: soft, No tenderness, No mass Extremity Exam: normal inspection, normal range of motion Back Exam: normal inspection, normal range of motion, No CVA tenderness, No vertebral tenderness Male Genitalia Exam: deferred Rectal Exam: deferred Objective Data Vital Signs: Vital Signs - 24 hr Temp Pulse Pulse Resp BP BP Pulse Ox 01/11/25 09:00 98.0 F 54 L 18 113/67 95 01/11/25 06:40 60 18 98 01/11/25 04:52 97.3 F 57 L 20 102/57 98 01/11/25 00:00 96.9 F 72 18 106/58 97 01/10/25 20:00 97.4 F 52 L 18 112/69 95 01/10/25 19:39 55 L 18 95 01/10/25 17:40 97.8 F 56 L 18 131/75 99 01/10/25 17:20 97.8 F 56 L 18 131/75 99 01/10/25 16:31 99 01/10/25 16:00 53 L 16 126/77 98 01/10/25 15:53 52 L 13 141/83 98 01/10/25 15:30 52 L 12 106/75 99 01/10/25 15:00 54 L 17 102/69 98 01/10/25 14:30 54 L 15 100/69 97 01/10/25 14:00 57 L 10 L 108/72 97 01/10/25 13:30 58 L 22 108/63 95 01/10/25 13:06 62 15 117/74 97 01/10/25 13:05 64 16 99 01/10/25 13:00 97.6 F 64 63 24 117/74 99 Pain Assessment - Last Documented Pain Intensity 10 Pain Scale Used 0-10 Pain Scale Intake and Output: Intake & Output 01/09/25 01/10/25 01/11/25 01/12/25 11:59 11:59 11:59 11:59 Intake Total 2180 Output Total 375 Balance 1805 Weight 99.79 kg Lab Results: Lab Results-Last 24 Hours 01/10/25 01/10/25 01/10/25 Range/Units 13:25 13:25 13:25 WBC 7.1 (4.23-9.07) x10^3/uL RBC 4.21 L (4.63-6.08) x10^6/uL Hgb 12.5 L (13.7-17.5) g/dL Hct 39.6 L (40.1-51.0) % MCV 94.1 H (79.0-92.2) fL MCH 29.7 (25.7-32.2) pg MCHC 31.6 L (32.3-36.5) g/dL RDW 14.9 H (11.6-14.4) % Plt Count 165 (163-337) x10^3/uL MPV 11.7 (9.4-12.4) fL Gran % 46.0 (34.0-67.9) % Immature Gran % (Auto) 0.3 (0.001-0.429) % Nucleat RBC Rel Count 0.0 (0.00-0.2) % Eos # (Auto) 0.11 (0.04-0.54) x10^3/uL Immature Gran # (Auto) 0.02 (0.001-0.031) x10^3u/L Absolute Lymphs (auto) 3.13 (1.32-3.57) x10^3/uL Absolute Monos (auto) 0.51 (0.30-0.82) x10^3/uL Absolute Nucleated RBC 0.00 (0.00-0.012) x10^3u/L Lymphocytes % 44.1 (21.8-53.1) % Monocytes % 7.2 (5.3-12.2) % Eosinophils % 1.6 (0.8-7.0) % Basophils % 0.8 (0.2-1.2) % Absolute Granulocytes 3.26 (1.78-5.38) x10^3/uL Basophils # 0.06 (0.01-0.08) x10^3/uL Sodium 138 (135-145) mmol/L Potassium 3.6 (3.5-5.1) mmol/L Chloride 111 H (98-107) mmol/L Carbon Dioxide 18 L (22-30) mmol/L Anion Gap 13.5 (5-15) MEQ/L BUN 15 (9-20) mg/dL Creatinine 1.04 (0.66-1.25) mg/dL Estimated GFR 88.0 ML/MIN Glucose 105 (74-106) mg/dL Calcium 8.5 (8.4-10.2) mg/dL Total Bilirubin 0.40 (0.2-1.3) mg/dL AST 76 H (17-59) U/L ALT 45 (0-50) U/L Alkaline Phosphatase 73 (38-126) U/L Troponin I < 0.012 (0.000-0.033) ng/mL Serum Total Protein 6.6 (6.3-8.2) g/dL Albumin 3.8 (3.5-5.0) g/dL Triglycerides (30-150) mg/dL Cholesterol (50-200) mg/dL LDL Cholesterol (30-100) mg/dL HDL Cholesterol (40-60) mg/dL Heart Disease Risk Ratio Amylase (30-110) U/L Lipase 466 H (23-300) U/L TSH 3rd Generation (0.470-4.680) mIU/L Ethyl Alcohol (0-10) mg/dL 01/10/25 01/10/25 01/10/25 Range/Units 13:25 13:25 16:27 WBC (4.23-9.07) x10^3/uL RBC (4.63-6.08) x10^6/uL Hgb (13.7-17.5) g/dL Hct (40.1-51.0) % MCV (79.0-92.2) fL MCH (25.7-32.2) pg MCHC (32.3-36.5) g/dL RDW (11.6-14.4) % Plt Count (163-337) x10^3/uL MPV (9.4-12.4) fL Gran % (34.0-67.9) % Immature Gran % (Auto) (0.001-0.429) % Nucleat RBC Rel Count (0.00-0.2) % Eos # (Auto) (0.04-0.54) x10^3/uL Immature Gran # (Auto) (0.001-0.031) x10^3u/L Absolute Lymphs (auto) (1.32-3.57) x10^3/uL Absolute Monos (auto) (0.30-0.82) x10^3/uL Absolute Nucleated RBC (0.00-0.012) x10^3u/L Lymphocytes % (21.8-53.1) % Monocytes % (5.3-12.2) % Eosinophils % (0.8-7.0) % Basophils % (0.2-1.2) % Absolute Granulocytes (1.78-5.38) x10^3/uL Basophils # (0.01-0.08) x10^3/uL Sodium (135-145) mmol/L Potassium (3.5-5.1) mmol/L Chloride (98-107) mmol/L Carbon Dioxide (22-30) mmol/L Anion Gap (5-15) MEQ/L BUN (9-20) mg/dL Creatinine (0.66-1.25) mg/dL Estimated GFR ML/MIN Glucose (74-106) mg/dL Calcium (8.4-10.2) mg/dL Total Bilirubin (0.2-1.3) mg/dL AST (17-59) U/L ALT (0-50) U/L Alkaline Phosphatase (38-126) U/L Troponin I < 0.012 (0.000-0.033) ng/mL Serum Total Protein (6.3-8.2) g/dL Albumin (3.5-5.0) g/dL Triglycerides 182 H (30-150) mg/dL Cholesterol 112 (50-200) mg/dL LDL Cholesterol 58 (30-100) mg/dL HDL Cholesterol 32 L (40-60) mg/dL Heart Disease Risk Ratio 3.0 Amylase (30-110) U/L Lipase (23-300) U/L TSH 3rd Generation (0.470-4.680) mIU/L Ethyl Alcohol < 10 (0-10) mg/dL 01/10/25 01/10/25 01/11/25 Range/Units 21:30 21:30 04:42 WBC 5.6 (4.23-9.07) x10^3/uL RBC 3.82 L (4.63-6.08) x10^6/uL Hgb 11.2 L (13.7-17.5) g/dL Hct 35.9 L (40.1-51.0) % MCV 94.0 H (79.0-92.2) fL MCH 29.3 (25.7-32.2) pg MCHC 31.2 L (32.3-36.5) g/dL RDW 15.1 H (11.6-14.4) % Plt Count 154 L (163-337) x10^3/uL MPV 11.7 (9.4-12.4) fL Gran % 47.1 (34.0-67.9) % Immature Gran % (Auto) 0.2 (0.001-0.429) % Nucleat RBC Rel Count 0.0 (0.00-0.2) % Eos # (Auto) 0.13 (0.04-0.54) x10^3/uL Immature Gran # (Auto) 0.01 (0.001-0.031) x10^3u/L Absolute Lymphs (auto) 2.31 (1.32-3.57) x10^3/uL Absolute Monos (auto) 0.45 (0.30-0.82) x10^3/uL Absolute Nucleated RBC 0.00 (0.00-0.012) x10^3u/L Lymphocytes % 41.4 (21.8-53.1) % Monocytes % 8.1 (5.3-12.2) % Eosinophils % 2.3 (0.8-7.0) % Basophils % 0.9 (0.2-1.2) % Absolute Granulocytes 2.63 (1.78-5.38) x10^3/uL Basophils # 0.05 (0.01-0.08) x10^3/uL Sodium (135-145) mmol/L Potassium (3.5-5.1) mmol/L Chloride (98-107) mmol/L Carbon Dioxide (22-30) mmol/L Anion Gap (5-15) MEQ/L BUN (9-20) mg/dL Creatinine (0.66-1.25) mg/dL Estimated GFR ML/MIN Glucose (74-106) mg/dL Calcium (8.4-10.2) mg/dL Total Bilirubin (0.2-1.3) mg/dL AST (17-59) U/L ALT (0-50) U/L Alkaline Phosphatase (38-126) U/L Troponin I < 0.012 (0.000-0.033) ng/mL Serum Total Protein (6.3-8.2) g/dL Albumin (3.5-5.0) g/dL Triglycerides (30-150) mg/dL Cholesterol (50-200) mg/dL LDL Cholesterol (30-100) mg/dL HDL Cholesterol (40-60) mg/dL Heart Disease Risk Ratio Amylase (30-110) U/L Lipase (23-300) U/L TSH 3rd Generation 2.345 (0.470-4.680) mIU/L Ethyl Alcohol (0-10) mg/dL 01/11/25 01/11/25 Range/Units 04:42 08:10 WBC (4.23-9.07) x10^3/uL RBC (4.63-6.08) x10^6/uL Hgb (13.7-17.5) g/dL Hct (40.1-51.0) % MCV (79.0-92.2) fL MCH (25.7-32.2) pg MCHC (32.3-36.5) g/dL RDW (11.6-14.4) % Plt Count (163-337) x10^3/uL MPV (9.4-12.4) fL Gran % (34.0-67.9) % Immature Gran % (Auto) (0.001-0.429) % Nucleat RBC Rel Count (0.00-0.2) % Eos # (Auto) (0.04-0.54) x10^3/uL Immature Gran # (Auto) (0.001-0.031) x10^3u/L Absolute Lymphs (auto) (1.32-3.57) x10^3/uL Absolute Monos (auto) (0.30-0.82) x10^3/uL Absolute Nucleated RBC (0.00-0.012) x10^3u/L Lymphocytes % (21.8-53.1) % Monocytes % (5.3-12.2) % Eosinophils % (0.8-7.0) % Basophils % (0.2-1.2) % Absolute Granulocytes (1.78-5.38) x10^3/uL Basophils # (0.01-0.08) x10^3/uL Sodium 138 (135-145) mmol/L Potassium 3.9 (3.5-5.1) mmol/L Chloride 109 H (98-107) mmol/L Carbon Dioxide 24 (22-30) mmol/L Anion Gap 9.7 (5-15) MEQ/L BUN 13 (9-20) mg/dL Creatinine 1.04 (0.66-1.25) mg/dL Estimated GFR 88.0 ML/MIN Glucose 71 L (74-106) mg/dL Calcium 8.2 L (8.4-10.2) mg/dL Total Bilirubin 0.40 (0.2-1.3) mg/dL AST 42 (17-59) U/L ALT 52 H (0-50) U/L Alkaline Phosphatase 70 (38-126) U/L Troponin I < 0.012 (0.000-0.033) ng/mL Serum Total Protein 5.9 L (6.3-8.2) g/dL Albumin 3.3 L (3.5-5.0) g/dL Triglycerides (30-150) mg/dL Cholesterol (50-200) mg/dL LDL Cholesterol (30-100) mg/dL HDL Cholesterol (40-60) mg/dL Heart Disease Risk Ratio Amylase 92 (30-110) U/L Lipase 119 (23-300) U/L TSH 3rd Generation (0.470-4.680) mIU/L Ethyl Alcohol (0-10) mg/dL Radiology Exams: Radiology Procedures Category Date Time Status ABDOMEN AND PELVIS W CONTRAST [CT] Stat Exams 01/10/25 14:34 Completed Medications: Medications Generic Name Dose Route Start Last Admin Trade Name Freq PRN Reason Stop Dose Admin Hydrocodone Bitart/Acetaminophen 1 tablet 01/11/25 10:00 01/11/25 10:26 Hydrocodone/Acetamin 10-325 Mg Tablet PO 01/16/25 09:59 1 tablet QID SHELTON Administration Albuterol Sulfate 2 puff 01/10/25 20:20 Albuterol Common Canister Inhaler IH 02/09/25 20:19 Q4H PRN PRN SHORTNESS OF BREATH/WHEEZING Baclofen 5 mg 01/11/25 10:00 01/11/25 10:29 Baclofen 10 Mg Tablet PO 02/10/25 09:59 5 mg TID SHELTON Administration Buspirone HCl 10 mg 01/11/25 10:00 01/11/25 10:28 Buspirone Hcl 5 Mg Tablet PO 02/10/25 09:59 10 mg BID SHELTON Administration Divalproex Sodium 750 mg 01/11/25 10:00 01/11/25 10:29 Divalproex Sodium 250 Mg Tab Extended Release PO 02/10/25 09:59 250 mg DAILY SHELTON Administration Empagliflozin 10 mg 01/11/25 10:00 01/11/25 10:31 Empagliflozin 10 Mg Tablet PO 02/10/25 09:59 10 mg DAILY SHELTON Administration Fluoxetine HCl 80 mg 01/11/25 10:00 01/11/25 10:25 Fluoxetine Hcl 20 Mg Cap PO 02/10/25 09:59 80 mg DAILY SHELTON Administration Lactated Ringer's 1,000 mls @ 75 mls/hr 01/10/25 18:00 01/11/25 05:53 Lactated Ringers IV 02/09/25 17:59 250 mls/hr .[id number] SHELTON Administration Meclizine HCl 25 mg 01/11/25 10:00 01/11/25 10:28 Meclizine Hcl 25 Mg Tablet PO 02/10/25 09:59 25 mg QID SHELTON Administration Metoprolol Succinate 25 mg 01/11/25 10:00 01/11/25 10:27 Metoprolol Succinate 25 Mg Xl Tab PO 02/10/25 09:59 25 mg DAILY SHELTON Administration Midodrine 15 mg 01/11/25 08:00 01/11/25 10:28 Midodrine Hcl 5 Mg Tablet PO 02/10/25 07:59 15 mg TIDWM SHELTON Administration Miscellaneous Information 1 each 01/11/25 07:45 Medication Intervention 1 Each Each 02/10/25 07:44 .RN TO CHECK SHELTON Nitroglycerin 0.4 mg 01/11/25 07:38 Nitroglycerin 0.4 Mg Tablet Bottle SL 02/10/25 07:37 Q5MIN PRN MR X 3 PRN Ondansetron HCl 4 mg 01/10/25 17:57 Ondansetron Hcl 4 Mg/2 Ml Vial IV 02/09/25 17:56 Q6H PRN PRN NAUSEA/VOMITING Ondansetron HCl 8 mg 01/11/25 07:33 Zofran 4 Mg/Udtablet Orally Disintegrating PO 02/10/25 07:32 Q12H/PRN PRN NAUSEA Pantoprazole Sodium 40 mg 01/11/25 10:00 01/11/25 10:27 Protonix (Pantoprazole) 40 Mg Tablet PO 02/10/25 09:59 40 mg DAILY SHELTON Administration Pregabalin 200 mg 01/11/25 10:00 01/11/25 10:26 Pregabalin 100 Mg Capsule PO 02/10/25 09:59 200 mg BID SHELTON Administration Prochlorperazine Edisylate 10 mg 01/11/25 12:43 Prochlorperazine Edisylate 10 Mg/2 Ml Vial IV 02/10/25 12:42 Q6H PRN PRN NAUSEA/VOMITING Ranolazine 1,000 mg 01/11/25 10:00 01/11/25 10:24 Ranolazine 500 Mg Tab.Sr.12h PO 02/10/25 09:59 1,000 mg BID SHELTON Administration Simethicone 80 mg 01/11/25 12:43 Simethicone 80 Mg Tab.Chew PO 02/10/25 12:42 QID PRN PRN GAS Simvastatin 40 mg 01/11/25 22:00 Simvastatin 20 Mg Tablet PO 02/10/25 21:59 HS SHELTON Ticagrelor 90 mg 01/10/25 22:00 01/11/25 10:30 Ticagrelor 90 Mg Tablet PO 02/09/25 21:59 Not Given BID SHELTON Topiramate 25 mg 01/11/25 10:00 01/11/25 10:27 Topiramate 50 Mg Tablet PO 02/10/25 09:59 25 mg BID SHELTON Administration Trazodone HCl 50 mg 01/11/25 22:00 Trazodone Hcl 50 Mg Tablet PO 02/10/25 21:59 HS SHELTON Discontinued Medications Generic Name Dose Route Start Last Admin Trade Name Freq PRN Reason Stop Dose Admin Hydromorphone HCl 1 mg 01/10/25 17:57 01/11/25 05:58 Hydromorphone 1 Mg/1ml Inj IV 01/15/25 17:56 1 mg Q4H PRN PRN Administration PAIN Dextrose/Sodium Chloride 1,000 mls @ 100 mls/hr 01/10/25 17:23 Dextrose 5% -0.45 Nacl 1000 Ml IV 02/09/25 17:22 .Q10H SHELTON Sodium Chloride Confirm 01/10/25 20:54 Sodium Chloride 0.9% 1000 Ml Administered 01/10/25 20:55 Dose 1,000 mls @ ud .ROUTE .STK-MED ONE Magnesium Hydroxide 45 ml 01/11/25 09:30 01/11/25 09:49 Mag Hydrx/Alum Hyd/Simeth/Lido 45 Ml Bottle PO 01/11/25 09:31 45 ml STAT ONE Administration Morphine Sulfate 4 mg 01/10/25 13:31 01/10/25 13:34 Morphine Sulfate 4 Mg/Ml Injection IV 01/10/25 13:32 4 mg STAT ONE Administration Morphine Sulfate Confirm 01/10/25 13:33 Morphine Sulfate 4 Mg/Ml Injection Administered 01/10/25 13:34 Dose 4 mg .ROUTE .STK-MED ONE Morphine Sulfate 4 mg 01/10/25 16:30 01/10/25 16:35 Morphine Sulfate 4 Mg/Ml Injection IV 01/10/25 16:31 4 mg STAT ONE Administration Morphine Sulfate Confirm 01/10/25 16:34 Morphine Sulfate 4 Mg/Ml Injection Administered 01/10/25 16:35 Dose 4 mg .ROUTE .STK-MED ONE Ondansetron HCl 4 mg 01/10/25 13:32 01/10/25 13:34 Ondansetron Hcl 4 Mg/2 Ml Vial IV 01/10/25 13:33 4 mg STAT ONE Administration Ondansetron HCl Confirm 01/10/25 13:33 Ondansetron Hcl 4 Mg/2 Ml Vial Administered 01/10/25 13:34 Dose 4 mg .ROUTE .STK-MED ONE Pantoprazole Sodium 40 mg 01/10/25 13:21 01/10/25 13:27 Pantoprazole 40 Mg Vial IV 01/10/25 13:22 40 mg STAT ONE Administration Pantoprazole Sodium Confirm 01/10/25 13:26 Pantoprazole 40 Mg Vial Administered 01/10/25 13:27 Dose 40 mg IV .STK-MED ONE Pantoprazole Sodium 40 mg 01/10/25 18:00 01/10/25 18:14 Pantoprazole 40 Mg Vial IV 02/09/25 17:59 Not Given Q24H SHELTON Pantoprazole Sodium 40 mg 01/11/25 10:00 Pantoprazole 40 Mg Vial IV 02/09/25 17:59 Q24H10 SHELTON Assessment/Plan (1) Chest pain Current Visit: Yes Status: Acute Code(s): R07.9 - CHEST PAIN, UNSPECIFIED (2) Pancreatitis Current Visit: Yes Status: Acute Qualifiers: Chronicity: acute Pancreatitis type: unspecified pancreatitis type Acute pancreatitis complication: unspecified Qualified Code(s): K85.90 - Acute pancreatitis without necrosis or infection, unspecified Code(s): K85.90 - ACUTE PANCREATITIS WITHOUT NECROSIS OR INFECTION, UNSP (3) HTN (hypertension) Current Visit: No Status: Chronic Code(s): I10 - ESSENTIAL (PRIMARY) HYPERTENSION (4) Hyperlipidemia Current Visit: No Status: Chronic Code(s): E78.5 - HYPERLIPIDEMIA, UNSPECIFIED (5) Obesity (BMI 30.0-34.9) Current Visit: No Status: Chronic Code(s): E66.811 - OBESITY, CLASS 1 (6) Sleep apnea Current Visit: No Status: Chronic Code(s): G47.30 - SLEEP APNEA, UNSPECIFIED (7) CAD (coronary artery disease) Current Visit: Yes Status: Acute Assessment & Plan: (1) Chest pain Current Visit: Yes Status: Acute Assessment & Plan: - trend trops, trops x3 negative - CXR negative for acute concern - CBC, CMP reviewed - TSH - lipid panel - tele - EKG 01/11 - + CP again this AM - Trops X3 ordered again- trend- x1 negative - EKG shows NSR - GI cocktail ordered as pt states he has upward burning in his chest- GERD like sxs- pt denies it's GERD and states GI cocktail did nothing for his pain Code(s): R07.9 - CHEST PAIN, UNSPECIFIED (2) Pancreatitis Current Visit: Yes Status: Acute Qualifiers: Chronicity: acute Pancreatitis type: unspecified pancreatitis type Acute pancreatitis complication: unspecified Qualified Code(s): K85.90 - Acute pancreatitis without necrosis or infection, unspecified Assessment & Plan: - Lipase 466 - lipid panel - IVF - Zofran PRN - Dilaudid PRN - Dilaudid IV for pain control - CT abd/pelvis: Impression: Again chronic findings including atelectasis/scarring, right common iliac artery stent, degenerative spondylosis, and left epidural generator/leads. Remaining CT abdomen/pelvis with contrast is negative. 01/11 - Lipase normal - IVF stopped- pt states he feels swollen Code(s): K85.90 - ACUTE PANCREATITIS WITHOUT NECROSIS OR INFECTION, UNSP (3) HTN (hypertension) Current Visit: No Status: Chronic Assessment & Plan: - Bp stable - Hold meds while NPO Code(s): I10 - ESSENTIAL (PRIMARY) HYPERTENSION (4) Hyperlipidemia Current Visit: No Status: Chronic Assessment & Plan: - Lipid panel reviewed- triglycerides 182, HDL 32 - resume home meds Code(s): E78.5 - HYPERLIPIDEMIA, UNSPECIFIED (5) Obesity (BMI 30.0-34.9) Current Visit: No Status: Chronic Assessment & Plan: - advised diet and exercise control Code(s): E66.811 - OBESITY, CLASS 1 (6) Sleep apnea Current Visit: No Status: Chronic Assessment & Plan: - Cpap at night Code(s): G47.30 - SLEEP APNEA, UNSPECIFIED (7) CAD (coronary artery disease) Current Visit: Yes Status: Acute Assessment & Plan: - Resume [place] - resume home meds 01/11 Code(s): I25.10 - ATHSCL HEART DISEASE OF [place] CORONARY ARTERY W/O ANG PCTRS Code(s): I25.10 - ATHSCL HEART DISEASE OF [place] CORONARY ARTERY W/O ANG PCTRS (8) Epigastric pain Current Visit: Yes Status: Acute Assessment & Plan: - GS consult - Gas- x - GO cocktail- did not help - Protonix - Has an upcoming appointment with GI on February 04 per pt and . Code(s): R10.13 - EPIGASTRIC PAIN (9) Chronic pain Current Visit: Yes Status: Acute Assessment & Plan: - Continue home narcotic norco VTE: [place] PPI: Protonix IV Next of KIN: D/c plan: pending GS plan Code status: Full Plan of care time: > 45 minutes Code(s): G89.29 - OTHER CHRONIC PAIN
[2025-01-11 14:38] VITALS: PULSE 57; O2SAT 96
--- NOTE | 2025-01-11 15:59 | PCM.DS ---
Discharge Summary Date of Admission: 01/10/25 17:17 Date of Discharge: 01/11/25 Admitting Physician: KAREN DAVIS MD Consults: Consults on Case 01/11/25 10:11 Consult Surgery ROUTINE Primary Care Provider: LEORA HAMM MD Allergies Allergies No Known Drug Allergies Allergy (Verified 01/10/25 17:27) Hospital Summary - Hospital Course Hospital Course: The patient is a 49-year-old male with a significant past medical history including pancreatitis, coronary artery disease with nine stents, COPD, obstructive sleep apnea, osteoarthritis, chronic pain, prior myocardial infarction, depression, and recent cervical spine surgery with a neurostimulator in place. He presented to the emergency department on January 10, 2025, with sudden-onset severe epigastric abdominal pain radiating to the chest and neck. Due to his cardiac history and an ejection fraction of 35% from a prior catheterization in November, cardiac causes were considered; however, initial evaluation was more suggestive of pancreatitis. He received intravenous fluids and pain control with opioids, and laboratory studies revealed amylase 119, triglycerides 182, and low HDL of 32.01/11/25 Troponins were negative 3, and EKG showed normal sinus rhythm without ischemic changes. The patient reported persistent severe epigastric pain radiating upward toward the throat, bloating, and nausea, though he did not obtain relief from a GI cocktail. Compazine was administered for nausea and anxiety, and Gas-X for gas-type discomfort. General surgery evaluated the patient and found no indication for surgical intervention or additional workup. Intravenous fluids were discontinued, and the patient tolerated a clear liquid diet with plans to advance as tolerated. Given clinical stability and improvement, he was deemed appropriate for discharge with follow- up instructions and to f/u OP with GI as scheduled. - Vitals & Intake/Output Vital Signs: Vital Signs Temperature 98.1 F 01/11/25 13:00 Pulse Rate 57 L 01/11/25 13:00 Respiratory Rate 18 01/11/25 13:00 Blood Pressure 133/78 01/11/25 13:00 O2 Sat by Pulse Oximetry 96 01/11/25 13:00 Intake & Output: Intake & Output 01/09/25 01/10/25 01/11/25 01/12/25 11:59 11:59 11:59 11:59 Intake Total 2180 Output Total 375 900 Balance 1805 -900 Weight 99.79 kg - Lab Result Diagrams: 01/11/25 04:42 01/11/25 04:42 Lab Results-Last 24 Hrs: Lab Results-Last 24 Hours 01/10/25 01/10/25 01/10/25 Range/Units 13:25 13: 16:27 WBC (4.23-9.07) x10^3/uL RBC (4.63-6.08) x10^6/uL Hgb (13.7-17.5) g/dL Hct (40.1-51.0) % MCV (79.0-92.2) fL MCH (25.7-32.2) pg MCHC (32.3-36.5) g/dL RDW (11.6-14.4) % Plt Count (163-337) x10^3/uL MPV (9.4-12.4) fL Gran % (34.0-67.9) % Immature Gran % (Auto) (0.001-0.429) % Nucleat RBC Rel Count (0.00-0.2) % Eos # (Auto) (0.04-0.54) x10^3/uL Immature Gran # (Auto) (0.001-0.031) x10^3u/L Absolute Lymphs (auto) (1.32-3.57) x10^3/uL Absolute Monos (auto) (0.30-0.82) x10^3/uL Absolute Nucleated RBC (0.00-0.012) x10^3u/L Lymphocytes % (21.8-53.1) % Monocytes % (5.3-12.2) % Eosinophils % (0.8-7.0) % Basophils % (0.2-1.2) % Absolute Granulocytes (1.78-5.38) x10^3/uL Basophils # (0.01-0.08) x10^3/uL Sodium (135-145) mmol/L Potassium (3.5-5.1) mmol/L Chloride (98-107) mmol/L Carbon Dioxide (22-30) mmol/L Anion Gap (5-15) MEQ/L BUN (9-20) mg/dL Creatinine (0.66-1.25) mg/dL Estimated GFR ML/MIN Glucose (74-106) mg/dL Calcium (8.4-10.2) mg/dL Total Bilirubin (0.2-1.3) mg/dL AST (17-59) U/L ALT (0-50) U/L Alkaline Phosphatase (38-126) U/L Troponin I < 0.012 (0.000-0.033) ng/mL Serum Total Protein (6.3-8.2) g/dL Albumin (3.5-5.0) g/dL Triglycerides 182 H (30-150) mg/dL Cholesterol 112 (50-200) mg/dL LDL Cholesterol 58 (30-100) mg/dL HDL Cholesterol 32 L (40-60) mg/dL Heart Disease Risk Ratio 3.0 Amylase (30-110) U/L Lipase (23-300) U/L TSH 3rd Generation (0.470-4.680) mIU/L Ethyl Alcohol < 10 (0-10) mg/dL 01/10/25 01/10/25 01/11/25 Range/Units 21:30 21:30 04:42 WBC 5.6 (4.23-9.07) x10^3/uL RBC 3.82 L (4.63-6.08) x10^6/uL Hgb 11.2 L (13.7-17.5) g/dL Hct 35.9 L (40.1-51.0) % MCV 94.0 H (79.0-92.2) fL MCH 29.3 (25.7-32.2) pg MCHC 31.2 L (32.3-36.5) g/dL RDW 15.1 H (11.6-14.4) % Plt Count 154 L (163-337) x10^3/uL MPV 11.7 (9.4-12.4) fL Gran % 47.1 (34.0-67.9) % Immature Gran % (Auto) 0.2 (0.001-0.429) % Nucleat RBC Rel Count 0.0 (0.00-0.2) % Eos # (Auto) 0.13 (0.04-0.54) x10^3/uL Immature Gran # (Auto) 0.01 (0.001-0.031) x10^3u/L Absolute Lymphs (auto) 2.31 (1.32-3.57) x10^3/uL Absolute Monos (auto) 0.45 (0.30-0.82) x10^3/uL Absolute Nucleated RBC 0.00 (0.00-0.012) x10^3u/L Lymphocytes % 41.4 (21.8-53.1) % Monocytes % 8.1 (5.3-12.2) % Eosinophils % 2.3 (0.8-7.0) % Basophils % 0.9 (0.2-1.2) % Absolute Granulocytes 2.63 (1.78-5.38) x10^3/uL Basophils # 0.05 (0.01-0.08) x10^3/uL Sodium (135-145) mmol/L Potassium (3.5-5.1) mmol/L Chloride (98-107) mmol/L Carbon Dioxide (22-30) mmol/L Anion Gap (5-15) MEQ/L BUN (9-20) mg/dL Creatinine (0.66-1.25) mg/dL Estimated GFR ML/MIN Glucose (74-106) mg/dL Calcium (8.4-10.2) mg/dL Total Bilirubin (0.2-1.3) mg/dL AST (17-59) U/L ALT (0-50) U/L Alkaline Phosphatase (38-126) U/L Troponin I < 0.012 (0.000-0.033) ng/mL Serum Total Protein (6.3-8.2) g/dL Albumin (3.5-5.0) g/dL Triglycerides (30-150) mg/dL Cholesterol (50-200) mg/dL LDL Cholesterol (30-100) mg/dL HDL Cholesterol (40-60) mg/dL Heart Disease Risk Ratio Amylase (30-110) U/L Lipase (23-300) U/L TSH 3rd Generation 2.345 (0.470-4.680) mIU/L Ethyl Alcohol (0-10) mg/dL 01/11/25 01/11/25 01/11/25 Range/Units 04:42 08:10 12:18 WBC (4.23-9.07) x10^3/uL RBC (4.63-6.08) x10^6/uL Hgb (13.7-17.5) g/dL Hct (40.1-51.0) % MCV (79.0-92.2) fL MCH (25.7-32.2) pg MCHC (32.3-36.5) g/dL RDW (11.6-14.4) % Plt Count (163-337) x10^3/uL MPV (9.4-12.4) fL Gran % (34.0-67.9) % Immature Gran % (Auto) (0.001-0.429) % Nucleat RBC Rel Count (0.00-0.2) % Eos # (Auto) (0.04-0.54) x10^3/uL Immature Gran # (Auto) (0.001-0.031) x10^3u/L Absolute Lymphs (auto) (1.32-3.57) x10^3/uL Absolute Monos (auto) (0.30-0.82) x10^3/uL Absolute Nucleated RBC (0.00-0.012) x10^3u/L Lymphocytes % (21.8-53.1) % Monocytes % (5.3-12.2) % Eosinophils % (0.8-7.0) % Basophils % (0.2-1.2) % Absolute Granulocytes (1.78-5.38) x10^3/uL Basophils # (0.01-0.08) x10^3/uL Sodium 138 (135-145) mmol/L Potassium 3.9 (3.5-5.1) mmol/L Chloride 109 H (98-107) mmol/L Carbon Dioxide 24 (22-30) mmol/L Anion Gap 9.7 (5-15) MEQ/L BUN 13 (9-20) mg/dL Creatinine 1.04 (0.66-1.25) mg/dL Estimated GFR 88.0 ML/MIN Glucose 71 L (74-106) mg/dL Calcium 8.2 L (8.4-10.2) mg/dL Total Bilirubin 0.40 (0.2-1.3) mg/dL AST 42 (17-59) U/L ALT 52 H (0-50) U/L Alkaline Phosphatase 70 (38-126) U/L Troponin I < 0.012 < 0.012 (0.000-0.033) ng/mL Serum Total Protein 5.9 L (6.3-8.2) g/dL Albumin 3.3 L (3.5-5.0) g/dL Triglycerides (30-150) mg/dL Cholesterol (50-200) mg/dL LDL Cholesterol (30-100) mg/dL HDL Cholesterol (40-60) mg/dL Heart Disease Risk Ratio Amylase 92 (30-110) U/L Lipase 119 (23-300) U/L TSH 3rd Generation (0.470-4.680) mIU/L Ethyl Alcohol (0-10) mg/dL - Radiology Exams Ordered Rad Exams-Entire Visit: Radiology Procedures Category Date Time Status ABDOMEN AND PELVIS W CONTRAST [CT] Stat Exams 01/10/25 14:34 Completed - Procedures and Test Procedures and Tests throughout Hospitalization: Therapy Orders & Screens 01/10/25 18:02 RT Screen per Nursing Assess ONCE Comment: Protocol Order Physician Instructions: Greater than 3 points order RT Admission Screen Reason For Exam: Triggered on Admission Diagnosis: Pancreatitis Diagnosis: Pancreatitis Pneumonia: No Home O2: No Asthma: No CHF: No Home CPAP/BIPAP: Yes: CPAP Home Nebs/MDI: Yes Total Points: 10 01/10/25 18:40 RT Miscellaneous Order ROUTINE Comment: Physician Instructions: Reason For Exam: cpap at [facility] Diagnosis: Pancreatitis 01/10/25 20:13 BiPap/CPAP ROUTINE Comment: cpap as per home Diagnosis: Pancreatitis 01/10/25 20:20 Respiratory Therapy Assessment DAILY Comment: Diagnosis: Pancreatitis 01/11/25 07:57 EKG STAT Comment: Diagnosis: Pancreatitis EKG Reason: Chest Pain Discharge Exam General Appearance: no apparent distress, alert Neurologic Exam: alert, oriented x 3, cooperative, normal mood/affect, nml cerebellar function, sensation nml, No motor deficits Eye Exam: PERRL, EOMI, eyes nml inspection Ears, Nose, Throat Exam: normal ENT inspection, pharynx normal, moist mucous membranes Neck Exam: normal inspection, non-tender, supple, full range of motion Respiratory Exam: normal breath sounds, lungs clear, No respiratory distress Cardiovascular Exam: regular rate/rhythm, normal heart sounds Gastrointestinal/Abdomen Exam: soft, No tenderness, No mass Male Genitalia Exam: deferred Rectal Exam: deferred Back Exam: normal inspection, normal range of motion, No CVA tenderness, No vertebral tenderness Extremity Exam: normal inspection, normal range of motion Skin Exam: normal color, warm, dry Final Diagnosis/Problem List - Final Discharge Diagnosis/Problem (1) Chest pain Current Visit: Yes Status: Acute Code(s): R07.9 - CHEST PAIN, UNSPECIFIED (2) Pancreatitis Current Visit: Yes Status: Acute Code(s): K85.90 - ACUTE PANCREATITIS WITHOUT NECROSIS OR INFECTION, UNSP (3) HTN (hypertension) Current Visit: No Status: Chronic Code(s): I10 - ESSENTIAL (PRIMARY) HYPERTENSION (4) Hyperlipidemia Current Visit: No Status: Chronic Code(s): E78.5 - HYPERLIPIDEMIA, UNSPECIFIED (5) Obesity (BMI 30.0-34.9) Current Visit: No Status: Chronic Code(s): E66.811 - OBESITY, CLASS 1 (6) Sleep apnea Current Visit: No Status: Chronic Code(s): G47.30 - SLEEP APNEA, UNSPECIFIED (7) CAD (coronary artery disease) Current Visit: Yes Status: Acute Code(s): I25.10 - ATHSCL HEART DISEASE OF [place] CORONARY ARTERY W/O ANG PCTRS (8) Epigastric pain Current Visit: Yes Status: Acute Code(s): R10.13 - EPIGASTRIC PAIN (9) Chronic pain Current Visit: Yes Status: Acute Assessment & Plan: (1) Chest pain Current Visit: Yes Status: Acute Assessment & Plan: - trend trops, trops x3 negative - CXR negative for acute concern - CBC, CMP reviewed - TSH - lipid panel - tele - EKG 01/11 - + CP again this AM - Trops X3 ordered again- trend- negative - EKG shows NSR - GI cocktail ordered as pt states he has upward burning in his chest- GERD like sxs- pt denies it's GERD and states GI cocktail did nothing for his pain Code(s): R07.9 - CHEST PAIN, UNSPECIFIED (2) Pancreatitis Current Visit: Yes Status: Acute Qualifiers: Chronicity: acute Pancreatitis type: unspecified pancreatitis type Acute pancreatitis complication: unspecified Qualified Code(s): K85.90 - Acute pancreatitis without necrosis or infection, unspecified Assessment & Plan: - Lipase 466 - lipid panel - IVF - Zofran PRN - Dilaudid PRN - Dilaudid IV for pain control - CT abd/pelvis: Impression: Again chronic findings including atelectasis/scarring, right common iliac artery stent, degenerative spondylosis, and left epidural generator/leads. Remaining CT abdomen/pelvis with contrast is negative. 01/11 - Lipase normal - IVF stopped - F/U with GI as scheduled for repeat pancreatitis - Alcohol level negative Code(s): K85.90 - ACUTE PANCREATITIS WITHOUT NECROSIS OR INFECTION, UNSP (3) HTN (hypertension) Current Visit: No Status: Chronic Assessment & Plan: - Bp stable - Hold meds while NPO Code(s): I10 - ESSENTIAL (PRIMARY) HYPERTENSION (4) Hyperlipidemia Current Visit: No Status: Chronic Assessment & Plan: - Lipid panel reviewed- triglycerides 182, HDL 32 - resume home meds Code(s): E78.5 - HYPERLIPIDEMIA, UNSPECIFIED (5) Obesity (BMI 30.0-34.9) Current Visit: No Status: Chronic Assessment & Plan: - advised diet and exercise control Code(s): E66.811 - OBESITY, CLASS 1 (6) Sleep apnea Current Visit: No Status: Chronic Assessment & Plan: - Cpap at night Code(s): G47.30 - SLEEP APNEA, UNSPECIFIED (7) CAD (coronary artery disease) Current Visit: Yes Status: Acute Assessment & Plan: - Resume [place] - resume home meds 01/11 Code(s): I25.10 - ATHSCL HEART DISEASE OF [place] CORONARY ARTERY W/O ANG PCTRS (8) Epigastric pain Current Visit: Yes Status: Acute Assessment & Plan: - GS consult- no intervention needed at this time and f/u with GI OP - Gas- x - GI cocktail- did not help - Protonix - Has an upcoming appointment with GI on February 04 per pt and . - Compazine helpful for anxiety r/t pain Code(s): R10.13 - EPIGASTRIC PAIN (9) Chronic pain Current Visit: Yes Status: Acute Assessment & Plan: - Continue home narcotic norco D/C plan of care time > 45 minutes Code(s): G89.29 - OTHER CHRONIC PAIN - Discharge Discharge Date: 01/11/25 Disposition: Home, Self-Care Condition: Stable Prescriptions: Continue Atorvastatin Calcium 80 mg PO HS Pregabalin [Lyrica] 200 mg PO BID Omeprazole 40 mg PO DAILY Hydrocodone/Acetaminophen [Hydrocodone-Acetamin 10-325 mg] 1 tab PO QID Ranolazine [Ranolazine ER] 1,000 mg PO BID Topiramate 25 mg PO BID Nitroglycerin 0.4 mg (Ed) [Nitrostat 0.4 MG (ED)] 0.4 mg SL STAT Fluoxetine HCl [Prozac] 80 mg PO DAILY Baclofen 5 mg PO TID Buspirone HCl [Bucapsol] 10 mg PO BID Dapagliflozin Propanediol [Farxiga] 10 mg PO DAILY Divalproex Sodium ER 250 mg [Depakote EXTENDED RELEASE 250 MG] 750 mg PO DAILY Empagliflozin [Jardiance] 10 mg PO DAILY Meclizine HCl 25 mg [Antivert 25 mg] 25 mg PO QID Midodrine HCl [Proamatine] 15 mg PO TID Ondansetron [Ondansetron Odt ] 8 mg PO Q12H PRN PRN Reason: Nausea Ticagrelor [Brilinta] 90 mg PO BID Trazodone HCl 50 mg [Desyrel 50 mg] 50 mg PO HS Metoprolol Succinate 25 mg Xl* [Toprol-Xl 25MG Tablets] 25 mg PO DAILY Follow up with: LEORA HAMM MD [Primary Care Provider, [facility]] - 01/18/25 2:00 pm
[2025-01-11 17:16] VITALS: BP 101/62; TEMP 97.9
[2025-01-11] MEDS ORDERED: DESYREL 50 MG PO SCH (22:00)
[2025-01-11] MEDS ORDERED: ZOCOR 20MG PO SCH (22:00)
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
== END 2025-01-11 18:45 | disposition home or self-care (01) ==
LOC: ED 13:00 → MED SURG 17:17
PROVIDERS: ADMIT Internal Medicine; ATTEND Internal Medicine
DX: R07.9 Chest pain, unspecified (principal); K85.90 Acute pancreatitis without necrosis or infection, unspecified; I10 Essential (primary) hypertension; E78.5 Hyperlipidemia, unspecified; E66.811 Obesity, class 1; G47.30 Sleep apnea, unspecified; I25.10 Atherosclerotic heart disease of native coronary artery without angina pectoris; R10.13 Epigastric pain; G89.29 Other chronic pain; I25.2 Old myocardial infarction; Z79.899 Other long term (current) drug therapy
CPT/HCPCS: 36415; 74177; 80053; 80061; 82077; 82150; 83690; 83721; 84443; 84484; 85025; 93005; 94660; 94760; 96374; 96375; 96376; 99285; G0378; Q3014

== ENCOUNTER 2025-01-17 15:27 | Emergency (ER) | payer MEDICARE ==
[2025-01-17] MEDS ORDERED: VALIUM 10 MG/2 ML SYRINGE ONE (15:40)
[2025-01-17] MEDS ORDERED: TORAdol 30 mg Injection ONE (15:40)
[2025-01-17 15:45] VITALS: TEMP 97.8
[2025-01-17] MEDS: VALIUM 10 MG/2 ML SYRINGE IV ONE (15:47)
[2025-01-17] MEDS: TORAdol 30 mg Injection IV ONE (15:47)
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
[2025-01-17 16:12] LABS: Calcium 8.3 mg/dL (8.4-10.2); Carbon Dioxide 20.0 mmol/L (22-30); Creatinine 1 1.1 mg/dL (0.66-1.25); EST GLOMERULAR FILTRATION RATE 82.3 ML/MIN; Glucose 122.0 mg/dL (74-106); Potassium 3.4 mmol/L (3.5-5.1); SGOT/AST 25.0 U/L (17-59); SGPT/ALT 27.0 U/L (0-50); Total Protein 6.4 g/dL (6.3-8.2)
[2025-01-17 16:40] LABS: BASOPHIL % 0.8 % (0.2-1.2); Basophil (Absolute #) 0.05 x10^3/uL (0.01-0.08); Eosinophil (Absolute #) 0.19 x10^3/uL (0.04-0.54); Hematocrit 36.9 % (40.1-51.0); Hemoglobin 11.4 g/dL (13.7-17.5); IMMATURE GRAN # 0.01 x10^3u/L (0.001-0.031); IMMATURE GRAN % 0.2 % (0.001-0.429); Lymphocyte (Absolute #) 2.91 x10^3/uL (1.32-3.57); Mean Corpuscular Hemoglobin 29.4 pg (25.7-32.2); Mean Corpuscular Hgb Concent. 30.9 g/dL (32.3-36.5); Monocyte (Absolute #) 0.56 x10^3/uL (0.30-0.82); NUCLEATED RBC # 0.00 x10^3u/L (0.00-0.012); NUCLEATED RBC % 0.0 % (0.00-0.2); Platelet Count 126 x10^3/uL (163-337); Red Blood Count 3.88 x10^6/uL (4.63-6.08); White Blood Count 6.0 x10^3/uL (4.23-9.07)
[2025-01-17] MEDS ORDERED: Zofran 4 MG/2 ML VIAL ONE (16:47)
[2025-01-17] MEDS ORDERED: Hydromorphone 1 mg/ml Injection ONE ×3 (16:47→18:52)
[2025-01-17] MEDS: Hydromorphone 1 mg/ml Injection IV ONE ×4 (16:51→19:53)
[2025-01-17] MEDS: Zofran 4 MG/2 ML VIAL IV ONE (16:51)
--- NOTE | 2025-01-17 17:16 | XRAY ---
Indication: Headache. Multiple contiguous axial images obtained through the head without contrast. Comparison: October 31, 2024. Normal appearing brain parenchyma, ventricles, and bony calvarium for patient's age. Visualized paranasal sinuses and mastoid air cells are clear. Impression: Continued normal CT head without contrast exam.
--- NOTE | 2025-01-17 17:25 | XRAY ---
Indication: Pain. S/P surgery 2 months ago. Multiple contiguous axial images obtained through the cervical spine without contrast. Sagittal and coronal reformatted images obtained. Comparison: October 31, 2024 Interval bilateral C2-T2 fusion surgery with grossly intact bilateral spinal fusion hardware and bone grafts. Hardware produces extreme beam artifact limiting these levels. Also interval C3-C7 bilateral laminectomy. Stable C5-C7 degenerative endplate spurring. No acute fracture or suspicious bony lesions. Sagittal and coronal reformatted images again demonstrates lordotic straightening and minimal C5-C7 disc space narrowing. No acute compression fracture or subluxation. Visualized noncontrasted soft tissues grossly unremarkable. Lung apices again demonstrates pulmonary emphysema. Impression: 1. Status post C2-T2 fusion with extreme beam artifact from bilateral posterior fusion hardware. 2. Status post C3-C7 bilateral laminectomy. 3. Again chronic findings including lordotic straightening, C5-C7 degenerative disc disease, and pulmonary emphysema.
--- NOTE | 2025-01-17 17:29 | XRAY ---
Indication: Neck pain. Multiple contiguous axial images obtained through the thoracic spine without contrast. Sagittal and coronal reformatted images obtained. Comparison: None CT cervical and lumbar spine reported separately. Incompletely visualized bilateral posterior cervicothoracic fusion hardware terminating T2 level producing beam artifact. Epidural lead seen posterior to T7. Minimal multilevel anterior endplate spurring greatest at T11-T12. Otherwise normal appearing thoracic segments with vertebral body heights/disc spaces maintained. Visualized noncontrasted soft tissues demonstrates mild pulmonary emphysema and mild bilateral dependent atelectasis. No focal solid/cystic soft tissue mass or abnormal fluid collection. Impression: 1. Beam artifact from cervicothoracic fusion hardware. 2. Chronic findings including minimal multilevel anterior endplate spurring, pulmonary emphysema, and epidural lead in Situ. 3. Remaining CT thoracic spine normal.
--- NOTE | 2025-01-17 17:32 | XRAY ---
Indication: Neck pain. Status post surgery 2 months ago. Multiple contiguous axial images obtained through the lumbar spine without contrast. Sagittal and coronal reformatted images obtained. Comparison: CT abdomen/pelvis January 10, 2025 CT thoracic spine reported separately. Again minimal multilevel anterior endplate spurring, right common iliac artery stent, and left epidural generator/leads. Otherwise normal appearing bones, articulation, and visualized noncontrasted soft tissues Impression: 1. Chronic findings including minimal multilevel anterior endplate spurring, right common iliac artery stent, and epidural generator/ lead in Situ. 3. Remaining CT lumbar spine again normal.
[2025-01-17 18:38] LABS: CK-Creatinine Phosphokinase 89.0 U/L (55-170)
[2025-01-17 18:44] LABS: Glucose, Urine >=1000 mg/dL (Negative); Protein,Urine Dip Negative (Negative); RBC 0-2 /HPF (0-5); WBC 0-2 /HPF (0-5)
[2025-01-17] MEDS: Lidoderm Patch 5% TOP ONE ×2 (19:12→19:13)
[2025-01-17] MEDS: Hydromorphone 1 mg/ml Injection IV PRN (22:20)
[2025-01-18 01:02] VITALS: O2SAT 96
[2025-01-18] MEDS ORDERED: Hydromorphone 1 mg/ml Injection ONE (02:19)
[2025-01-18 03:17] VITALS: BP 124/84; PULSE 59; RESP 10
--- NOTE | 2025-01-18 08:44 | XRAY ---
Indication: Epigastric pain. Pancreatitis. Multiple contiguous axial images obtained through the abdomen and pelvis using 80 cc Isovue 370 contrast. Comparison: January 10, 2025. Lung bases demonstrates increasing moderate bilateral dependent atelectasis. Heart not enlarged. Noncontrasted stomach and bowel loops appear nonobstructed again with normal appendix. Again cholecystectomy. No free fluid/air. Remaining liver, pancreas, spleen, adrenal glands, kidneys, ureters, and bladder are normal in CT appearance and attenuation. Abdominal aorta is normal in course and caliber with again incidental patent right common iliac artery stent. No pathologic retroperitoneal lymphadenopathy. Osseous structures intact again with left lower back epidural generator/leads. Impression: No change compared to CT exam 7 days ago. Again incidental bilateral dependent atelectasis, right common iliac artery stent, and epidural generator/leads. No new/acute findings.
== END 2025-01-18 03:25 | disposition short-term general hospital (02) ==
LOC: ED 15:27
DX: M54.2 Cervicalgia (principal); Z79.84 Long term (current) use of oral hypoglycemic drugs; Z79.02 Long term (current) use of antithrombotics/antiplatelets; Z79.899 Other long term (current) drug therapy